=== PATIENT | female | born 1965 | race Caucasian/White ===

== ENCOUNTER 2019-11-29 13:16 | Outpatient (CLI) | payer BC, SELFPAY ==
--- NOTE | ~2019-11-29 | MM_ITS ---
EXAMINATION: MM diagnostic mammo unilat LT HISTORY: Left breast calcifications TECHNIQUE: Additional 3-D tomosynthesis images of the left breast were performed and synthetic 2-D im ages were generated. CAD analysis was submitted and interpreted. COMPARISON: Comparison to multiple prior studies sequentially, with oldest reviewed study dated 12/2014. FINDINGS: Breast composed of scattered areas of fibroglandular density. There are multiple punctate m onomorphic calcifications subareolar location of the left breast. There are no suspicious masses or a rchitectural distortion. IMPRESSION: 1. Punctate monomorphic subareolar left breast calcifications are likely benign. 2. Recommend 6 month follow-up diagnostic left mammogram BI-RADS category 3, probably benign findings. Reviewed, dictated and finalized at location A. PING INSPECTOR IMPRESSION: 1. Punctate monomorphic subareolar left breast calcifications are likely benign . 2. Recommend 6 month follow-up diagnostic left mammogram BI-RADS category 3, probably benign findings.
== END 2019-11-29 13:17 | disposition home or self-care (01) ==
PROVIDERS: PCP Emergency Medicine; Visit Provider Emergency Medicine
DX: R92.8 Other abnormal and inconclusive findings on diagnostic imaging of breast (principal)
CPT/HCPCS: 77065

== ENCOUNTER 2020-07-14 02:37 | Outpatient (CLI) | payer BC, SELFPAY ==
[2020-07-14 18:16] LABS: SARS-CoV-2 RNA PCR Negative
== END 2020-07-14 02:38 | disposition home or self-care (01) ==
LOC: ANHCOVIDDT 02:38
PROVIDERS: Anesthesiology; PCP Emergency Medicine; Visit Provider Obstetrics & Gynecology
DX: Z01.812 Encounter for preprocedural laboratory examination (principal); Z20.828 Contact with and (suspected) exposure to other viral communicable diseases
CPT/HCPCS: 87635; C9803; U0003

== ENCOUNTER 2020-07-16 01:34 | Day surgery (SDC) | payer BC, SELFPAY ==
[2020-07-04 09:09] VITALS: BMI 29.2
--- NOTE | 2020-07-16 05:56 | ECG_ITS ---
Measurements Intervals [place] Rate: 55 P: 20 [place]: 151 QRS: -7 QRSD: 96 T: -7 QT: 412 QTc: 397 Interpretive Statements SINUS BRADYCARDIA LOW QRS VOLTAGE IN PRECORDIAL LEADS BORDERLINE T WAVE ABNORMALITY- INFERIOR LEADS BASELINE ARTIFACT- I, II, AVR BORDERLINE ECG Electronically Signed On 07-16-2020 11:30:29 CDT by Donell Umana D.O.
[2020-07-16] MEDS: ACETAMINOPHEN 500 MG TABLET 1000 MG PO (10:29)
[2020-07-16] MEDS: LACTATED RINGERS 1,000 ML 30 ML IV CONT (10:30)
--- NOTE | 2020-07-16 10:49 | WPDANESEPPF ---
Anes - Initial Pre Proc Eval Procedure: Operation Date: 07/16/20 12:00 Proposed Procedures p Hysteroscopy, Dilation And Curettage - Arthur Reinoso MD Date/Time: 07/16/20 10:49 Surgeon: Arthur Reinoso MD Pre Op Diagnosis: Postmenopausal Bleeding Patient Data Age: 55 Gender: F Height: 5 ft 9 in Weight: 90 kg Allergies Allergy/AdvReac Type Severity Reaction Status Date / Time No Known Allergies Allergy Verified 07/04/20 09:09 Home Medications Medication Instructions Recorded Confirmed Type rosuvastatin 5 mg tablet 5 mg PO DAILY 10/24/19 07/04/20 History Patient hx anesthesia problems: none Family hx anesthesia problems: none REPLACED BY [facility] Past Medical History Medical History (Updated 07/16/20 @ 08:46 by Luis Miguel Mckee MD) Hyperlipidemia Social History Social History Smoking status: Never smoker Substance use: never Substance use type: does not use Living arrangements: with family Gender identity (if verbalized by the patient): Female Spiritual care concerns: No Anes - Eval Final PreProcedure Day of Procedure 07/16/20 10:49 Patient weight: overweight Heart: regular rate and rhythm Lungs: clear to auscultation Airway: Mallampati scale class II Neurological: alert and oriented Last oral intake: 6 hours (had coffee with creamer) ASA classification: II Emergent: no Anesthetic plan: proceed Anesthesia type and monitoring: general GIVS and standard monitoring Informed Consent: The patient's anesthetic plan and its attendant risks and benefits were discussed with the patient/family/POA. Questions were solicited and answers provided to the satisfaction of the patient/family/POA.
--- NOTE | 2020-07-16 11:42 | PM.IMHP ---
H&P: HPI History of Present Illness Date/Time: 07/16/20 11:42 Chief complaint: Postmenopausal Bleeding Narrative: Kelsie Kumar is a 55 year old female Presents with history of intermittent bleeding over the past few months. Ultrasound was ordered which showed no abnormalities of the endometrial cavity. We discussed multiple options and she had the option to defer any evaluation pending further bleeding episodes and decided to proceed with procedure today. Will be proceeding with hysteroscope uterine curettings. Review of Systems Review of Systems: All systems reviewed & are unremarkable except as noted in HPI and below PMFSH Past Medical History Medical History Hyperlipidemia Social History Social History Smoking status: Never smoker Substance use: never Substance use type: does not use Living arrangements: with family Gender identity (if verbalized by the patient): Female Spiritual care concerns: No Meds Home Medications and Allergies Home Medications Medication Instructions Recorded Confirmed Type rosuvastatin 5 mg tablet 5 mg PO DAILY 10/24/19 07/04/20 History Allergies Allergy/AdvReac Type Severity Reaction Status Date / Time No Known Allergies Allergy Verified 07/04/20 09:09 Exam Const: General: cooperative Resp: Effort & Inspection: normal respiratory effort Cardio: Rate: regular rate Rhythm: regular rhythm GI: Inspection: normal to inspection : Speculum Exam - Cervix: normal appearance of the cervix Bimanual exam- vagina & uterus: normal bimanual exam Bimanual Exam- Adnexa, other: normal adnexae Assessment and Plan Assessment and plan (1) Postmenopausal bleeding: Code(s): N95.0 - Postmenopausal bleeding Status: Acute Additional Plan proceed with hysteroscopy in uterine curettings.
--- NOTE | 2020-07-16 11:44 | WPDHPUPDATE1 ---
History and Physical Update Update Date/Time: 07/16/20 11:44 History and Physical has been reviewed, including an updated exam of the patient. There are NO changes in the patient's condition. Risks, benefits, and alternatives have been discussed and questions answered. Patient agrees to proceed with procedure.
[2020-07-16] MEDS: KETOROLAC 30 MG/ML VIAL (*BKC) IV PUSH (12:27)
[2020-07-16 12:32] VITALS: BP 101/63; PULSE 65; RESP 14; O2SAT 96
[2020-07-16 12:47] VITALS: BP 126/74; PULSE 63; RESP 16; TEMP 36.4; O2SAT 100
[2020-07-16 13:00] VITALS: BP 117/65; PULSE 57; RESP 16
--- NOTE | 2020-07-16 13:19 | PM.OP ---
Procedure Note - Brief Procedure Note - Brief Date of procedure: 07/16/20 Pre-op diagnosis: Postmenopausal Bleeding Post-op diagnosis: same Procedure performed: 1. Hysteroscopy 2. Uterine curettings Description of procedure: Patient prepped and draped in usual manner for this procedure. Single-tooth tenaculum attached to anterior lip of the cervix. Stenotic cervix was noted and with small probe was opened. Hysteroscope was then placed in the cavity with atrophy noted throughout. There were no other abnormalities noted. Curettings were obtained with scant amount of tissue retrieved. At this point seizure was considered terminated with immediate postop condition of patient excellent. Anesthesia: MAC Surgeon: Arthur Reinoso MD Estimated blood loss (mL): 5 Drains: No Packing: No Pathology: yes Complications: No immediate complications Condition: stable Disposition: PACU Findings: Atrophic endometrial cavity with no abnormalities noted.
[2020-07-16 13:20] VITALS: BP 101/64; PULSE 56; RESP 16
== END 2020-07-16 13:30 | disposition home or self-care (01) ==
PROVIDERS: PCP Emergency Medicine; Visit Provider Obstetrics & Gynecology
PROC: 0U5B8ZZ Destruction of Endometrium, Via Natural or Artificial Opening Endoscopic (ICD-10-PCS; CPT 58563; principal; 2020-07-16 12:00)
DX: N95.0 Postmenopausal bleeding (principal); N88.2 Stricture and stenosis of cervix uteri; E78.5 Hyperlipidemia, unspecified
CPT/HCPCS: 58558; 88305; 93005; A9270; J1885; J2250; J2405; J2704; J3010; J7030; J7120

== ENCOUNTER 2022-02-17 14:36 | Outpatient (CLI) | payer BC, SELFPAY ==
--- NOTE | ~2022-02-17 | XR_ITS ---
EXAMINATION: XR chest 2V Exam Date/Time: 02/17/2022 14:45 CDT CLINICAL HISTORY: CHRONIC COUGH X 6MO Comparison: None available. RESULT: Lines, tubes, and devices: None. Lungs and pleura: Clear. Cardiomediastinal silhouette: Unremarkable cardiomediastinal silhouette. Other: No acute osseous or upper abdominal finding. IMPRESSION: No acute cardiopulmonary process Reviewed, dictated and finalized at location K.
== END 2022-02-17 14:37 | disposition home or self-care (01) ==
LOC: ANHIMG 14:41
PROVIDERS: PCP Internal Medicine; Visit Provider Internal Medicine
DX: R05.3 Chronic cough (principal)
CPT/HCPCS: 71046

== ENCOUNTER 2022-06-25 07:56 | Outpatient (CLI) | payer BC, SELFPAY ==
--- NOTE | ~2022-06-25 | XR_ITS ---
XR sinus min 3V DATE: 06/25/2022 08:22 INDICATION: Cough. Frontal and maxillary sinus congestion, pressure TECHNIQUE: Leah Whitaker, lateral and submental vertical views COMPARISON: None FINDINGS: The right frontal sinus is not developed. The left frontal sinus and ethmoid air cells, lef t maxillary sinus and sphenoid sinuses appear normally developed and aerated. Prominent soft tissue thickening is noted in the lower half of the right maxillary sinus with superio r convexity, suggesting possible polyps prominent mucus retention cysts. The mastoid air cells are normally developed and aerated. IMPRESSION: Right maxillary sinus disease Reviewed, dictated and finalized at location D.
--- NOTE | ~2022-06-25 | XR_ITS ---
XR barium swallow DATE: 06/25/2022 09:51 INDICATION: Gastroesophageal reflux. Tickle in back of throat, leads to vomiting. TECHNIQUE: Fluoroscopy, rapid sequence spot radiographs and overhead radiographs during oral ingestio n of barium 11.713 DAP 0.7 minutes fluoroscopy time 99 spot images, 6 overhead images COMPARISON: None FINDINGS: There is normal deglutition and esophageal peristalsis. No stricture, mucosal fold thicken ing or erosion, intraluminal mass lesion, stricture, diverticulum or other significant abnormality is detected. IMPRESSION: Negative Reviewed, dictated and finalized at Location A. Reviewed, dictated and finalized at location B. IMPRESSION: Negative
== END 2022-06-25 07:57 | disposition home or self-care (01) ==
LOC: CHSIMG 07:57
PROVIDERS: PCP Internal Medicine; Visit Provider Internal Medicine
DX: K21.9 Gastro-esophageal reflux disease without esophagitis (principal); R05.9 Cough, unspecified
CPT/HCPCS: 70220; 74220

== ENCOUNTER 2022-08-24 16:14 | Outpatient (CLI) | payer BC, SELFPAY ==
--- NOTE | ~2022-08-24 | XR_ITS ---
XR lumbar spine 2-3V DATE: 08/24/2022 17:02 INDICATION: Right lumbar pain and sciatica TECHNIQUE: AP, lateral, coned lateral lumbosacral views COMPARISON: None FINDINGS: There is osteopenia. Normal alignment of the lumbar spine. No fracture or bone destruction or spondylolisthesis. Lumbar pe dicles are intact. There is mild to moderate degenerative disease throughout the lumbar and lumbosacral spine. The sacroiliac joints are normal. IMPRESSION: Mild to moderate degenerative disease throughout the lumbar spine Osteopenia Reviewed, dictated and finalized at location A. ERT GROWER
== END 2022-08-24 16:15 | disposition home or self-care (01) ==
LOC: CHSIMG 16:16
PROVIDERS: PCP Internal Medicine; Visit Provider Internal Medicine
DX: M54.17 Radiculopathy, lumbosacral region (principal)
CPT/HCPCS: 72100

== ENCOUNTER 2023-02-25 14:07 | Outpatient (CLI) | payer BC, SELFPAY ==
--- NOTE | ~2023-02-25 | CT_ITS ---
EXAMINATION: CT sinus wo con DATE: 02/25/2023 14:38 INDICATION: Sinusitis TECHNIQUE: Computed tomography (CT) of the paranasal sinuses was performed without intravenous contra st. The dose-length product was 286.08 mGy-cm. Automated exposure control and iterative reconstructio n technique were employed. COMPARISON: No prior studies for comparison. FINDINGS: There is moderate mucosal thickening of the right maxillary sinus. Rightward nasal septal d eviation. Ostiomeatal units are patent. No air-fluid levels. No mucoperiosteal reaction. Mastoids are pneumatized. IMPRESSION: 1. Moderate right maxillary sinusitis. Reviewed, dictated and finalized at location B.
== END 2023-02-25 14:08 | disposition home or self-care (01) ==
PROVIDERS: PCP Internal Medicine; Visit Provider Otolaryngology
DX: J32.0 Chronic maxillary sinusitis (principal)
CPT/HCPCS: 70486

== ENCOUNTER 2023-09-11 06:31 | Emergency (ER) | payer BC, SELFPAY ==
--- NOTE | ~2023-09-11 | CT_ITS ---
EXAMINATION: CT chest abdomen pelvis w con DATE: 09/11/2023 10:35 INDICATION: Hematemesis and hemoptysis TECHNIQUE: Transaxial computed tomographic images of the chest, abdomen, and pelvis were obtained aft er the administration of 100 cc of Omnipaque 350 intravenous contrast. The dose-length product (DLP) was 2671.29 mGy-cm. Automated exposure control and iterative reconstruction technique were employed. COMPARISON: None FINDINGS: CHEST CT: There is mild atelectasis of the lung bases. No pleural effusion or pneumothorax. No pathologically e nlarged thoracic lymph nodes are identified. The heart size is normal. There is mild thoracic spondyl osis. ABDOMEN/PELVIS CT: There is a small sliding hiatal hernia. The liver, spleen, pancreas, gallbladder, and adrenal glands are normal. The kidneys are unremarkable. No pathologically enlarged abdominal or pelvic lymph nodes are identified. No free intraperitoneal gas or evidence of bowel obstruction. There is moderate lumba r spondylosis. IMPRESSION: 1. No CT correlate for the patient's symptoms. Reviewed, dictated and finalized at location F. IVING SPECIALIST
--- NOTE | ~2023-09-11 | XR_ITS ---
EXAMINATION: XR chest 2V DATE: 09/11/2023 08:16 INDICATION: Hemoptysis TECHNIQUE: PA and lateral views of the chest are obtained. COMPARISON: 02/17/2022 FINDINGS: There are minimal airspace opacities of the right lung base. No pleural effusion or pneumot horax. The cardiomediastinal silhouette is normal. There is moderate thoracic spondylosis. IMPRESSION: 1. Right basilar airspace opacity, consistent with atelectasis versus pneumonia. Reviewed, dictated and finalized at location F. UNT CONSULTANT IMPRESSION: 1. Right basilar airspace opacity, consistent with atelectasis versus pneumonia .
[2023-09-11 06:32] VITALS: BP 133/83; PULSE 73; RESP 18; TEMP 36.6; O2SAT 98
[2023-09-11 07:58] VITALS: BP 131/68; PULSE 67; RESP 18; O2SAT 98; O2SAT 99
--- NOTE | 2023-09-11 09:04 | ED.SOB ---
HPI - SOB/Dyspnea General Chief Complaint: Shortness of Breath/Dyspnea Stated Complaint: coughing up blood Time Seen by Provider: 09/11/23 08:51 Source: patient Mode of arrival: ambulatory Limitations: no limitations History of Present Illness HPI Narrative: Mary is a 58-year-old female patient presenting to the ER today for coughing up blood. She reports that she has been having some chronic vomiting for over a 1.5 years. States yet she vomits about 2-3 times per week. Noted over the last few days that she has been vomiting up some blood (coffee ground emesis). Also reporting some shortness of breath with this. Does have a history of pneumonia in the past. Has seen her PCP in the past for the vomiting and she had a barium swallow and blood testing completed and states that he ruled out anything going on GI alston and felt it may be more related to ENT issue. Denies any fever or chills. SpO2 is 98% on room air and she is able to speak in full sentences. Related Data Home Medications Medication Instructions Recorded Confirmed rosuvastatin 5 mg tablet (Crestor) 5 mg PO DAILY 10/24/19 12/16/22 coenzyme [id number] E 100 mg-100 1 cap PO 12/16/22 12/16/22 unit capsule fluticasone propionate 50 1 spray intranasal 12/16/22 12/16/22 mcg/actuation nasal spray,suspension montelukast 10 mg tablet 10 mg PO 12/16/22 12/16/22 multivitamin-ferrous 1 tablet PO DAILY 12/16/22 12/16/22 fumarate-folic acid 18 mg-400 mcg tablet (Centrum) Allergies Allergy/AdvReac Type Severity Reaction Status Date / Time No Known Allergies Allergy Verified 09/11/23 08:01 Review of Systems Review of Systems: Pertinent positives per HPI. Patient denies any fever, chills, rash, headache, visual changes, dizziness, runny nose, sore throat, chest pain, palpitations, diarrhea, constipation, abdominal pain, or any urinary issues. PMF Past Medical History Medical History Hyperlipidemia Family History Family History Father Hypertension Thyroid disorder Mother Diabetes mellitus Sibling Asthma Grandparent Alcohol abuse Hypertension Thyroid disorder Social History Social History Smoking status: Never smoker Alcohol intake: current Drinks per week: 1 Substance use: never Substance use type: does not use Lack of Transportation: No Lack of Food: Never True Current Housing: I Have Housing Concerned About Future Housing: No Difficulty Paying Gas/Electric Bills: No Difficulty Paying for Meds: No Currently Unemployed: No Education: Associate Degree Difficulty w/ Childcare or Family Care: No Living arrangements: with family Gender identity (if verbalized by the patient): Female Spiritual care concerns: No Comments At the time of my signature, I reviewed and agree with the nursing past medical, surgical, social, and family history. There is no relevant family history pertinent to the patient complaint. Exam Narrative: General: Well-developed, well nourished, in no apparent distress Head: Normocephalic, atraumatic Eyes: Pupils equally round and reactive to light bilaterally, EOM intact, sclera and conjunctive clear, no discharge, lids normal Ears: TMs intact and clear, ear canals clear, no drainage, grossly hearing normal. Nose: Nares patent, no discharge, no inflammation, no sinus tenderness. Mouth: Oropharynx without lesions or masses, good dentition, MMM. Neck: Supple, trachea midline, no enlargement of anterior or posterior cervical nodes, no thyroid masses or goiter palpable. Cardio: Regular rate and rhythm, s1 and s2 normal, no murmur appreciated. Resp: Faint crackles in the right lower lung pulido, no rhonchi,wheezing, or rubs Abdomen: Soft, pliable, bowel sounds present in all quadrants, non-tender
[2023-09-11 09:35] LABS: Basophils Absolute Auto 0.1 K/mm3 (0.0-0.1); Basophils Percent Auto 0.9 % (0.2-1.2); Eosinophils Absolute Auto 0.2 K/mm3 (0-0.3); Hemoglobin 11.7 g/dL (12.0-15.0); Immature Granulocyte Absolute 0.02 K/mm3 (0.00-0.031); Immature Granulocyte Percent A 0.4 % (0-0.5); Lymphocytes Absolute Auto 1.82 K/mm3 (0.9-3.2); Lymphocytes Percent Auto 32.8 % (18.3-44.2); Mean Corpuscular HGB Conc 32.5 g/dl (32-36); Mean Corpuscular Hemoglobin 29.3 pg (26-34); Mean Corpuscular Volume 90.2 fl (80-100); Mean Platelet Volume 11.2 fl (7.4-10.4); Monocytes Absolute Auto 0.3 K/mm3 (0.1-0.6); Monocytes Percent Auto 5.4 % (2.6-8.5); Neutrophils Absolute Auto 3.1 K/mm3 (1.3-6.7); Neutrophils Percent Auto 56.5 % (45.5-73.1); Platelet Count Result 186 k/mm3 (150-375); Red Blood Count 3.99 M/mm3 (4.2-5.4); Red Cell Distribution Width 12.7 % (11.5-14.5); White Blood Count 5.6 K/mm3 (4.5-10.0)
[2023-09-11 09:45] LABS: Prothrombin Time 14.1 Seconds (11.1-14.7)
[2023-09-11 09:46] LABS: Partial Thromboplastin Time 30.4 SECONDS (22.3-36.8)
[2023-09-11 09:50] LABS: Alanine Aminotransferase 16 U/L (6-35); Alkaline Phosphatase 50 U/L (38-126); Anion Gap 7 mmol/L (8-16); Aspartate Amino Transferase 20 U/L (14-36); Bilirubin,Total 0.5 mg/dL (0.2-1.3); Blood Urea Nitrogen 16 mg/dL (7-17); Carbon Dioxide 23 mmol/L (22-30); Chloride 108 mmol/L (98-107); Estimated CRCL calculation 93 ml/min; Estimated Glomerular Filt Rate > 60; Glucose 86 mg/dL (65-110); Potassium 3.9 mmol/L (3.4-5.0); Sodium 138 mmol/L (137-145)
[2023-09-11 10:44] VITALS: BP 137/84; PULSE 66; RESP 18; O2SAT 100
[2023-09-11 11:55] VITALS: BP 132/90; PULSE 85; RESP 20; O2SAT 98
== END 2023-09-11 11:57 | disposition home or self-care (01) ==
PROVIDERS: Emergency Provider Nurse Practitioner Family; PCP Internal Medicine
DX: K29.70 Gastritis, unspecified, without bleeding (principal); K44.9 Diaphragmatic hernia without obstruction or gangrene; E78.5 Hyperlipidemia, unspecified
CPT/HCPCS: 36415; 71046; 71260; 74177; 80053; 85025; 85610; 85730; 99284; Q9967

== ENCOUNTER 2023-11-07 10:06 | Outpatient (CLI) | payer BC, SELFPAY ==
--- NOTE | 2023-11-07 10:15 | ECG_ITS ---
Measurements Intervals [place] Rate: 67 P: 35 [place]: 163 QRS: -14 QRSD: 87 T: -9 QT: 385 QTc: 407 Interpretive Statements SINUS RHYTHM LOW QRS VOLTAGE IN PRECORDIAL LEADS [QRS DEFLECTION < 1.0 mV IN CHEST LEADS] BORDERLINE ECG COMPARED TO ECG 07/16/2020 11:27:49 NO SIGNIFICANT CHANGE Electronically Signed On 11-07-2023 16:52:34 WATCH TRAIN INSPECTOR by Mango Tyson M.D.
== END 2023-11-07 10:07 | disposition home or self-care (01) ==
LOC: ANHSURGERY 10:09
PROVIDERS: PCP Internal Medicine; Visit Provider Otolaryngology
DX: E78.00 Pure hypercholesterolemia, unspecified (principal); Z01.818 Encounter for other preprocedural examination
CPT/HCPCS: 93005

== ENCOUNTER 2023-11-09 00:50 | Day surgery (SDC) | payer BC, SELFPAY ==
[2023-10-19 14:41] VITALS: BMI 30.9
--- NOTE | 2023-11-07 12:14 | SUR.PREOP ---
Patient called regarding upcoming procedure. Reviewed preop instructions, appointment times, and procedure prep.
--- NOTE | 2023-11-08 16:31 | PM.HPGS ---
History of Present Illness History of Present Illness Consent: Risks, benefits, and alternatives have been discussed and questions answered. Patient agrees to proceed with procedure. Chief complaint: vomiting,hematemesis,hemotysis,neoplasm screening Narrative: Kelsie Kumar is a 58 year old female withchronic cough and chronic sinusitis is referred for evaluation of vomiting times one year. ? Patient reports vomiting occurs at least 2 times per week.? Vomiting is preceded by chronic coughing. ? States vomiting can occur at random times including during the night.? states when she does vomit usually is mucus like and brown and yellow in color. States she did have an episode blood with coughing and possible hematemesis, this prompted follow-up at [facility] on September 11. Her hemoglobin and hematocrit were very slightly decreased at 11.7 and 36.? She has never had a colonoscopy. Review of Systems Review of Systems: All systems reviewed & are unremarkable except as noted in HPI and below PMFSH Past Medical History Medical History Anxiety Cough with hemoptysis Encounter for screening colonoscopy Encounter for screening examination for sexually transmitted disease Hematemesis Hyperlipidemia Screening mammogram, encounter for Vomiting Surgical History Surgical History H/O colonoscopy (10/19/23) History of hysteroscopy suction D&C Missed AB History of hysteroscopy (07/16/20) Hscope D&C ; PMB ; Benign Family History Family History Father Hypertension Thyroid disorder Mother Diabetes mellitus Sibling Asthma Grandparent Alcohol abuse Hypertension Thyroid disorder Other Breast cancer maternal aunt Social History Social History Smoking status: Never smoker Second hand tobacco smoke exposure: No Alcohol intake: current Drinks per week: 2 Substance use: never Substance use type: does not use Do You Feel Safe in your Home?: Yes Lack of Transportation: No Lack of Food: Never True Current Housing: I Have Housing Concerned About Future Housing: No Difficulty Paying Gas/Electric Bills: No Difficulty Paying for Meds: No Currently Unemployed: No Education: Associate Degree Difficulty w/ Childcare or Family Care: No Living arrangements: alone Additional living arrangements comments: / spouse will not leave house Occupation/Education: occupation 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 Gender identity (if verbalized by the patient): Female Sexual Orientation (if Verbalized by the Patient): Straight or Heterosexual Spiritual care concerns: No Meds Home Medications and Allergies Home Medications Medication Instructions Recorded Confirmed Type rosuvastatin 5 mg tablet (Crestor) 5 mg PO DAILY 10/24/19 11/09/23 History coenzyme [id number] E 100 mg-100 1 cap PO DAILY 12/16/22 11/03/23 History unit capsule fluticasone propionate 50 1 spray intranasal TID 12/16/22 11/03/23 History mcg/actuation nasal spray,suspension multivitamin-ferrous 1 tablet PO DAILY 12/16/22 11/03/23 History fumarate-folic acid 18 mg-400 mcg tablet (Centrum) bupropion HCl 150 mg 24 hr tablet, 300 mg PO QAM 10/13/23 11/09/23 History extended release Allergies Allergy/AdvReac Type Severity Reaction Status Date / Time No Known Allergies Allergy Verified 11/09/23 10:53 Exam Const: General: alert Orientation/consciousness: patient oriented x3 Resp: Auscultation: clear to auscultation bilaterally Cardio: Rhythm: regular rhythm GI: GI Palp: Yes Soft to palpation and No Tenderness to palpation present (GI) Neuro: General: patient oriented x3 Assessment and Plan Assessment and plan (1) Vomiting:
[2023-11-09 10:59] VITALS: BP 107/62; PULSE 62; RESP 18; TEMP 36.6; O2SAT 98
[2023-11-09] MEDS: LACTATED RINGERS 1,000 ML 150 ML IV CONT (11:06)
--- NOTE | 2023-11-09 11:34 | WPDANESEPPF ---
Anes - Initial Pre Proc Eval Procedure: Operation Date: 11/09/23 12:30 Proposed Procedures p Esophagogastroduodenoscopy & Screening Colonoscopy - Troy Becerra MD Date/Time: 11/09/23 11:34 Surgeon: Troy Becerra MD Pre Op Diagnosis: vomiting,hematemesis,hemotysis,neoplasm screening Patient Data Age: 58 Gender: F Height: 1.75 m Weight: 92.6 kg Last Vital Signs Temp 98 F 11/09/23 10:59 Pulse 62 11/09/23 10:59 Resp 18 11/09/23 10:59 BP 107/62 11/09/23 10:59 Pulse Ox 98 11/09/23 10:59 O2 Del Method Room Air 11/09/23 10:59 Allergies Allergy/AdvReac Type Severity Reaction Status Date / Time No Known Allergies Allergy Verified 11/09/23 10:53 Home Medications Medication Instructions Recorded Confirmed Type rosuvastatin 5 mg tablet (Crestor) 5 mg PO DAILY 10/24/19 11/09/23 History coenzyme [id number]-[id number] E 100 mg-100 1 cap PO DAILY 12/16/22 11/03/23 History unit capsule fluticasone propionate 50 1 spray intranasal TID 12/16/22 11/03/23 History mcg/actuation nasal spray,suspension multivitamin-ferrous 1 tablet PO DAILY 12/16/22 11/03/23 History fumarate-folic acid 18 mg-400 mcg tablet (Centrum) bupropion HCl 150 mg 24 hr tablet, 300 mg PO QAM 10/13/23 11/09/23 History extended release Patient hx anesthesia problems: none Family hx anesthesia problems: none Results Review: All pre-operative results and documents have been reviewed as part of the pre-operative evaluation. [facility] Past Medical History Medical History (Updated 10/26/23 @ 15:18 by Arthur Reinoso MD) Anxiety Cough with hemoptysis Encounter for screening colonoscopy Encounter for screening examination for sexually transmitted disease Hematemesis Hyperlipidemia Screening mammogram, encounter for Vomiting Surgical History Surgical History H/O colonoscopy (10/19/23) History of hysteroscopy suction D&C Missed AB History of hysteroscopy (07/16/20) Hscope D&C ; PMB ; Benign Family History Family History Father Hypertension Thyroid disorder Mother Diabetes mellitus Sibling Asthma Grandparent Alcohol abuse Hypertension Thyroid disorder Other Breast cancer maternal aunt Social History Social History (Updated 10/26/23 @ 14:51 by CARMEN Fu) Smoking status: Never smoker Second hand tobacco smoke exposure: No Alcohol intake: current Drinks per week: 2 Substance use: never Substance use type: does not use Do You Feel Safe in your Home?: Yes Lack of Transportation: No Lack of Food: Never True Current Housing: I Have Housing Concerned About Future Housing: No Difficulty Paying Gas/Electric Bills: No Difficulty Paying for Meds: No Currently Unemployed: No Education: Associate Degree Difficulty w/ Childcare or Family Care: No Living arrangements: alone Additional living arrangements comments: / spouse will not leave house Occupation/Education: occupation 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 Gender identity (if verbalized by the patient): Female Sexual Orientation (if Verbalized by the Patient): Straight or Heterosexual Spiritual care concerns: No Anes - Eval Final PreProcedure Day of Procedure 11/09/23 11:35 Patient weight: normal Heart: regular rate and rhythm Lungs: clear to auscultation Airway: Mallampati scale class II Neurological: alert and oriented Last oral intake: >/= 8 hours ASA classification: II Emergent: no Anesthetic plan: proceed Anesthesia type and monitoring: general GIVS and standard monitoring Results Review: All pre-operative results and documents have been reviewed as part of the pre-operative evaluation. Informed Consent: The patient's anesthetic plan and its attendant risks and benefits were discussed with the patient/family
--- NOTE | 2023-11-09 13:09 | SUR.OPER ---
EGD: [id number] COLON: Start 1300
[2023-11-09 13:24] VITALS: BP 106/67; PULSE 83; RESP 18; O2SAT 100
[2023-11-09 13:34] VITALS: BP 103/60; PULSE 79; RESP 18; O2SAT 100
[2023-11-09 13:44] VITALS: BP 118/73; PULSE 67; RESP 18; O2SAT 100
== END 2023-11-09 13:55 | disposition home or self-care (01) ==
PROVIDERS: PCP Internal Medicine; Visit Provider Internal Medicine Gastroenterology
PROC: 0DJ08ZZ Inspection of Upper Intestinal Tract, Via Natural or Artificial Opening Endoscopic (ICD-10-PCS; CPT 43235; principal; 2023-11-09 12:30)
DX: Z12.11 Encounter for screening for malignant neoplasm of colon (principal); K21.00 Gastro-esophageal reflux disease with esophagitis, without bleeding; K22.2 Esophageal obstruction; K44.9 Diaphragmatic hernia without obstruction or gangrene; E78.5 Hyperlipidemia, unspecified; F41.9 Anxiety disorder, unspecified
CPT/HCPCS: 45378; 43239; 87081; 88305; J2001; J2704; J7120

== ENCOUNTER 2023-11-15 00:49 | Day surgery (SDC) | payer BC, SELFPAY ==
[2023-11-03 11:42] VITALS: BMI 30.9
--- NOTE | 2023-11-03 11:51 | PC.NURSE ---
Report to the Outpatient Waiting Room, entrance under the green pavilion located off [facility], at time 08:15AM on date 11-15-23. Planned Procedure Time: 10:15AM. Time changes happen often and if your time is changed the preop area will call you the afternoon before. - You and your visitor will be asked to self-screen and do not enter if you have any COVID symptoms. - A mask is optional within the hospital at this time. Patients may have clear liquids (water, carbonated beverages, clear teas, apple juice) until 3 hours prior to surgery (07:15AM) with a maximum of 20 ounces. - No food from midnight until time of surgery Take the following medications with a SIP of water the morning of surgery: BUPROPION DO NOT STOP ANY OF YOUR OTHER PRESCRIPTION MEDICATIONS PRIOR TO SURGERY ?EXCEPT THE FOLLOWING Medications to discontinue per physician VITAMINS AND SUPPLEMENTS Date to take last dose 11-11-23 Please no make-up, nail icelandic, hairspray, perfume, deodorant, or body powder the day of surgery. No jewelry (including any body piercings) or valuables the day of surgery, leave them at home. Please take a shower or bath the night before, or the morning of, surgery with an antibacterial soap. Wear comfortable, loose fitting clothing. - Jewelry must be removed prior to entering the operating room. Rings and piercings that are not removed may be cut off. - The hospital will not accept responsibility for valuables. - Please leave all valuables, including medications, at home the day of surgery. If you are going home after surgery, a licensed pile driver must drive you home. - NO public transportation without another adult if you receive anesthesia. - We recommend that an adult stay with you for 24 hours following discharge. - We also recommend that you do not drive, make important decision, drink alcoholic beverages, or take any drugs that were not prescribed by your health care provider for at least 24 hours after your discharge time. Follow any additional instructions given to you from your surgeon. If you or anyone in your household have experienced Covid symptoms in the past week, please notify your surgeon or the nurse liaison at the phone number below for possible testing. Telephone instructions given to PATIENT and asked if any additional questions and then verbalized understanding. Patient advised to call surgeon office or pre surgery nurse liaison [phone] if any additional questions.
--- NOTE | 2023-11-13 13:17 | PM.IMHP ---
H&P: HPI History of Present Illness Date/Time: 11/13/23 13:17 Chief Complaint: nasal congestion nasal obstruction septal deviation turbinate hypertrophy chronic sinusitis Narrative: planned procedure Review of Systems Review of Systems: All systems reviewed & are unremarkable except as noted in HPI and below PMFSH Past Medical History Medical History Anxiety Cough with hemoptysis Encounter for screening colonoscopy Encounter for screening examination for sexually transmitted disease Hematemesis Hyperlipidemia Screening mammogram, encounter for Vomiting Surgical History Surgical History H/O colonoscopy (10/19/23) History of hysteroscopy suction D&C Missed AB History of hysteroscopy (07/16/20) Hscope D&C ; PMB ; Benign Family History Family History Father Hypertension Thyroid disorder Mother Diabetes mellitus Sibling Asthma Grandparent Alcohol abuse Hypertension Thyroid disorder Other Breast cancer maternal aunt Social History Social History Smoking status: Never smoker Second hand tobacco smoke exposure: No Alcohol intake: current Drinks per week: 2 Substance use: never Substance use type: does not use Do You Feel Safe in your Home?: Yes Lack of Transportation: No Lack of Food: Never True Current Housing: I Have Housing Concerned About Future Housing: No Difficulty Paying Gas/Electric Bills: No Difficulty Paying for Meds: No Currently Unemployed: No Education: Associate Degree Difficulty w/ Childcare or Family Care: No Living arrangements: alone Additional living arrangements comments: / spouse will not leave house Occupation/Education: occupation 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 Gender identity (if verbalized by the patient): Female Sexual Orientation (if Verbalized by the Patient): Straight or Heterosexual Spiritual care concerns: No Meds Home Medications and Allergies Home Medications Medication Instructions Recorded Confirmed Type rosuvastatin 5 mg tablet (Crestor) 5 mg PO DAILY 10/24/19 11/09/23 History coenzyme I77-kvhxfvn E 100 mg-100 1 cap PO DAILY 12/16/22 11/03/23 History unit capsule fluticasone propionate 50 1 spray intranasal TID 12/16/22 11/03/23 History mcg/actuation nasal spray,suspension multivitamin-ferrous 1 tablet PO DAILY 12/16/22 11/03/23 History fumarate-folic acid 18 mg-400 mcg tablet (Centrum) bupropion HCl 150 mg 24 hr tablet, 300 mg PO QAM 10/13/23 11/09/23 History extended release pantoprazole 40 mg tablet,delayed 40 mg PO QAM #30 tabs 11/09/23 Rx release Allergies Allergy/AdvReac Type Severity Reaction Status Date / Time No Known Allergies Allergy Verified 11/09/23 10:53 Exam Narrative: chronic appearing sinuses septal deviation turbinate hypertrophy Assessment and Plan Assessment and plan (1) PND (post-nasal drip): Code(s): R09.82 - Postnasal drip Status: Acute Assessment and Plan: OR plan will be septoplasty inferior turbinate reduction with outfracture for the nasal obstruction issues as well access to the sinuses.? Image guided endoscopic bilateral maxillary antrostomies.? Risks were discussed including bleeding infection damage to surrounding structures need for time off work time off school inherent risk of narcotic use failure to resolve symptoms septal perforation need for continued use of medication.? Damage to any structure of the clavicles by myself damage to any structure during the induction and maintenance of anesthesia including vocal cord paralysis.? CSF leak brain brain damage change in vision total blindness.? Patient voiced understanding and agreed.? (2)
--- NOTE | 2023-11-14 14:47 | WPDANESEPPF ---
Anes - Initial Pre Proc Eval Procedure: Operation Date: 11/15/23 11:45 Proposed Procedures p Endoscopic Assisted Septoplasty, - Alphonse Velasquez MD s Image Guided Bilateral Endoscopic Maxillary Antrostomies, Bilateral Inferior Turbinate Reductions With Outfracture - Alphonse Velasquez MD Date/Time: 11/14/23 14:47 Surgeon: Alphonse Velasquez MD Pre Op Diagnosis: chronic sinusitis and septal deviation Patient Data Age: 58 Gender: F Height: 1.75 m Weight: 95 kg Allergies Allergy/AdvReac Type Severity Reaction Status Date / Time No Known Allergies Allergy Verified 11/09/23 10:53 Home Medications Medication Instructions Recorded Confirmed Type rosuvastatin 5 mg tablet (Crestor) 5 mg PO DAILY 10/24/19 11/15/23 History coenzyme Y66-tulmnff E 100 mg-100 1 cap PO DAILY 12/16/22 11/15/23 History unit capsule fluticasone propionate 50 1 spray intranasal TID 12/16/22 11/15/23 History mcg/actuation nasal spray,suspension multivitamin-ferrous 1 tablet PO DAILY 12/16/22 11/15/23 History fumarate-folic acid 18 mg-400 mcg tablet (Centrum) bupropion HCl 150 mg 24 hr tablet, 300 mg PO QAM 10/13/23 11/15/23 History extended release pantoprazole 40 mg tablet,delayed 40 mg PO QAM #30 tabs 11/09/23 11/15/23 Rx release Patient hx anesthesia problems: none Family hx anesthesia problems: none Results Review: All pre-operative results and documents have been reviewed as part of the pre-operative evaluation. COUNTS INCLUDE 234 BEDS AT THE [facility] Past Medical History Medical History Anxiety Cough with hemoptysis Encounter for screening colonoscopy Encounter for screening examination for sexually transmitted disease Hematemesis Hyperlipidemia Screening mammogram, encounter for Vomiting Surgical History Surgical History H/O colonoscopy (10/19/23) History of hysteroscopy suction D&C Missed AB History of hysteroscopy (07/16/20) Hscope D&C ; PMB ; Benign Family History Family History Father Hypertension Thyroid disorder Mother Diabetes mellitus Sibling Asthma Grandparent Alcohol abuse Hypertension Thyroid disorder Other Breast cancer maternal aunt Social History Social History Smoking status: Never smoker Second hand tobacco smoke exposure: No Alcohol intake: current Drinks per week: 2 Substance use: never Substance use type: does not use Do You Feel Safe in your Home?: Yes Lack of Transportation: No Lack of Food: Never True Current Housing: I Have Housing Concerned About Future Housing: No Difficulty Paying Gas/Electric Bills: No Difficulty Paying for Meds: No Currently Unemployed: No Education: Associate Degree Difficulty w/ Childcare or Family Care: No Living arrangements: alone Additional living arrangements comments: / spouse will not leave house Occupation/Education: occupation 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 Gender identity (if verbalized by the patient): Female Sexual Orientation (if Verbalized by the Patient): Straight or Heterosexual Spiritual care concerns: No Anes - Eval Final PreProcedure Day of Procedure 11/14/23 14:47 Patient weight: obese Heart: regular rate and rhythm Lungs: clear to auscultation Airway: Mallampati scale class III Neurological: alert and oriented Last oral intake: >/= 8 hours ASA classification: II Emergent: no Anesthetic plan: proceed Anesthesia type and monitoring: general ETT and standard monitoring Results Review: All pre-operative results and documents have been reviewed as part of the pre-operative evaluation. Informed Consent: The patient's anesthetic plan and its attendant risks and benefits were discussed with the patient/family/POA. Questions were solicite
[2023-11-15] VITALS (8 sets, daily range): BP systolic 114–135; BP diastolic 55–79; PULSE 68–96; RESP 12–20; TEMP 36.4; O2SAT 95–100
--- NOTE | 2023-11-15 07:19 | WPDHPUPDATE1 ---
History and Physical Update Update Date/Time: 11/15/23 07:19 History and Physical has been reviewed, including an updated exam of the patient. There are NO changes in the patient's condition. Risks, benefits, and alternatives have been discussed and questions answered. Patient agrees to proceed with procedure.
[2023-11-15] MEDS: ACETAMINOPHEN 500 MG TABLET 1000 MG PO (10:00)
[2023-11-15] MEDS: LACTATED RINGERS 1,000 ML 30 ML IV CONT ×2 (10:10→14:02)
[2023-11-15] MEDS: ceFAZolin 2 GM/D5W 50 ML 2 GM/50 ML BAG IVPB (11:33)
[2023-11-15] MEDS: LIDO 1%/EPINEPHRINE 1:100,000 50 ML VIAL INFILTRATE (12:08)
[2023-11-15] MEDS: OXYMETAZOLINE HCL 0.05% NAS 15 ML BTL (*BKC) 1 SPRAY NASAL (12:09)
[2023-11-15] MEDS: fentaNYL CITRATE INJ (*CRX) 100 MCG/2 ML VIAL 25 MCG IV PUSH ×6 (14:12→14:26)
--- NOTE | 2023-11-15 14:20 | W.PM.PROC2 ---
Procedure Note - Detailed Date of Procedure 11/16/23 Pre-op Diagnosis chronic sinusitis and septal deviation Post-op Diagnosis Same Procedure Performed Endoscopic assisted septoplasty bilateral inferior turbinate reduction with outfracture bilateral image guided endoscopic maxillary an Surgeon Alphonse Velasquez MD Anesthesia General Indications see above Findings severe left caudal septal deviation reset on the maxillary crest. Large turbinates reduced nicely. Polypoid tissue in the right max scant polypoid tissue left max overall relatively normal appearing. Description of Procedure Patient identified consent verified preop. Patient brought to the operating room. Time-out performed. General anesthesia induced endotracheal tube secured. Patient prepped draped position procedure confirmed 2nd time-out performed. Image guidance initiated confirmed. Afrin-soaked pledgets placed for 5 minutes then removed. Total 10 cc injected bilateral nasal septum bilateral inferior turbinates. Hemitransection incision made left-sided septum left-sided nasal septal flap elevated right-sided nasal septal flap elevated a crossed over about a cm back removed deviated portion of septum Tate Diaz forceps Lamonte forceps osteotome. Anterior portion reset sutured down on the crust hemitransection incision closed with a 500 rotated 5 0 fast sutures. Surgiflo was placed prior to this and packed down against the inferior portion is are scant bleeding. Turbinates reduced submucosal plane using microdebrider 2.5 mm blade Surgiflo placed in the entrance point they were then outfractured [place] elevator. No bleeding. Maxillary antrostomies performed double ball tip probe under image guidance with microdebrider as well as straight through cut backbiter. Findings described above. Area copiously irrigated with sterile warm normal saline. Small Nova pack placed bilateral Lombardi splints placed bilaterally sutured anteriorly they were ensured to be lateral to the middle turbinates. Blood loss 25 cc I performed all dictated portions procedure no complications patient tolerated procedure well. Estimated Blood Loss 25 Drains No Packing Yes Pathology None sent Complications No immediate complications Condition Stable Disposition PACU [facility] Billing Surgery - Charge Forward: Surgery Billing
[2023-11-15] MEDS: HYDROmorphone HCL INJ (*CRX) 1 MG/ML SYR 0.5 MG IV PUSH ×2 (14:31→14:41)
[2023-11-15] MEDS: oxyCODONE HCL (*CRX) 5 MG TAB IR PO (15:21)
== END 2023-11-15 15:48 | disposition home or self-care (01) ==
PROVIDERS: PCP Internal Medicine; Visit Provider Otolaryngology
PROC: (CPT 30520; principal; 2023-11-15 11:45)
PROC: (CPT 31256; 2023-11-15 11:45)
DX: J32.9 Chronic sinusitis, unspecified (principal); J34.2 Deviated nasal septum; J34.3 Hypertrophy of nasal turbinates; J33.8 Other polyp of sinus; E78.5 Hyperlipidemia, unspecified; F41.9 Anxiety disorder, unspecified
CPT/HCPCS: 31256; 61782; 30520; 30140; A9270; J0690; J1100; J1170; J2250; J2371; J2405; J2704; J3010; J7040; J7120

== ENCOUNTER 2024-01-05 16:51 | Outpatient (CLI) | payer BC, SELFPAY ==
--- NOTE | ~2024-01-05 | MM_ITS ---
EXAMINATION: MM screening omer BI w joslyn HISTORY: Screening TECHNIQUE: Craniocaudal and mediolateral oblique 3-D tomosynthesis images were obtained and synthetic 2-D images were generated. CAD analysis was submitted and interpreted. COMPARISON: 09/20/2019 BREAST PARENCHYMAL COMPOSITION: Not dense: There are scattered areas of fibroglandular density. FINDINGS: There is no evidence of suspicious mass, calcification, or architectural distortion to sugg est malignancy in either breast. There has been no suspicious interval change. IMPRESSION: 1. No mammographic evidence of malignancy. 2. Recommend routine screening mammography in one year. BI-RADS CATEGORY 1 - NEGATIVE Reviewed, dictated and finalized at location A.
== END 2024-01-05 16:52 | disposition home or self-care (01) ==
PROVIDERS: PCP Internal Medicine; Visit Provider Obstetrics & Gynecology
DX: Z12.31 Encounter for screening mammogram for malignant neoplasm of breast (principal)
CPT/HCPCS: 77063; 77067

== ENCOUNTER 2024-08-03 11:40 | Emergency (ER) | payer BC, SELFPAY ==
--- NOTE | ~2024-08-03 | XR_ITS ---
EXAMINATION: XR foot RT min 3V DATE: 08/03/2024 12:09 INDICATION: Right foot injury and pain. TECHNIQUE: 5 views of right foot were obtained. COMPARISON: None. FINDINGS: There is moderate hallux valgus. There is an oblique fracture of diaphysis of fifth metatar billy. The distal fracture fragment demonstrates 2 mm dorsomedial displacement. There is mild osteoarth ritis of first metatarsophalangeal joint and some of the interphalangeal joints. There is an enthesop hyte of posterior aspect of calcaneal tuberosity. IMPRESSION: 1. Oblique fracture of diaphysis of fifth metatarsal. Reviewed, dictated and finalized at location B.
[2024-08-03 11:40] VITALS: BP 114/78; PULSE 72; RESP 16; TEMP 36.6; O2SAT 100
--- NOTE | 2024-08-03 11:55 | ED_ITS ---
HPI - Extremity Injury (Lower) General Chief Complaint: Extremity Injury, Lower Stated Complaint: Foot Injury Time Seen by Provider: 08/03/24 11:49 Source: patient Mode of arrival: ambulatory Limitations: no limitations History of Present Illness HPI Narrative: Patient is a 59-year-old female with a right foot injury after walking in her yd and tripping over the telephone pole. No other injuries. She has pain at the distal lateral aspect of the right foot. MD complaint: foot injury ( Right lateral foot) Onset (ago): hour(s) (1) Injury: Right: foot Type of Injury: blunt Place: home and street/outdoors Severity: moderate Severity scale (1-10): 4 Relieving factors: immobilization Exacerbating factors: weight bearing, movement and palpation Context: direct blow ( patient kicked into a telephone pole) Associated symptoms: swelling, able to partially bear weight and ambulatory Other symptoms: none Treatments prior to arrival: cold therapy Related Data Home Medications Medication Instructions Recorded Confirmed rosuvastatin 5 mg tablet (Crestor) 5 mg PO DAILY 10/24/19 03/22/24 coenzyme I56-sdujiwi E 100 mg-100 1 cap PO DAILY 12/16/22 03/22/24 unit capsule multivitamin-ferrous 1 tablet PO DAILY 12/16/22 03/22/24 fumarate-folic acid 18 mg-400 mcg tablet (Centrum) fluticasone propionate 50 1 - 2 spray intranasal TID 12/05/23 03/22/24 mcg/actuation nasal spray,suspension bupropion HCl 150 mg 24 hr tablet, 150 mg PO QAM 12/21/23 03/22/24 extended release Allergies Allergy/AdvReac Type Severity Reaction Status Date / Time No Known Allergies Allergy Verified 03/22/24 16:20 Review of Systems Review of Systems: All systems reviewed & are unremarkable except as noted in HPI and below Constitutional: Constitutional: Reports no additional constitutional complaints Eyes: Eyes: Reports no additional eye complaints ENT: Reports system reviewed and no additional complaints, except as documented Cardiovascular: Cardiovascular: Reports no additional cardiovascular complaints Respiratory: Respiratory: Reports no additional respiratory complaints Gastrointestinal: Gastrointestinal: Reports no additional gastrointestinal complaints Genitourinary: Genitourinary: Reports no additional female genitourinary complaints Musculoskeletal: Musculoskeletal: Reports no additional musculoskeletal complaints Integumentary/Breasts: Skin/Breast: Reports system reviewed and no additional complaints, except as docu Neurologic: Reports system reviewed and no additional complaints, except as documented Psychiatric: Psychiatric: Reports no additional psychiatric complaints Endocrine: Endocrine: Reports no additional endocrine complaints Hematologic/Lymphatic: Hematologic/Lymphatic: Reports no additional hematologic/lymphatic complaints Allergic/Immunologic: Allergic/Immunologic: Reports no additional allergic/immunologic complaints PMFSH Past Medical History Medical History Anxiety Cough with hemoptysis Encounter for screening colonoscopy Encounter for screening examination for sexually transmitted disease Hematemesis Hyperlipidemia Screening mammogram, encounter for Vomiting Surgical History Surgical History H/O colonoscopy (10/19/23) History of hysteroscopy suction D&C Missed AB History of hysteroscopy (07/16/20) Hscope D&C ; PMB ; Benign Family History Family History Father Hypertension Thyroid disorder Mother Diabetes mellitus Sibling Asthma Grandparent Alcohol abuse Hypertension Thyroid disorder Other Breast cancer maternal aunt Social History Social History Smoking status: Never smoker Second hand tobacco smoke exposure: No Alcohol intake: current Drinks per week: 2 Substance use: never Substance use type: does not use Do You Feel Safe in your Home?: Yes Lack of Transportation: No Lack of Food: Never True Current Housing: I Have Housing Concerned About Future Housing: No Difficulty Paying Gas/Electric Bills: No Difficulty Paying for Meds: No Currently Unemployed: No Education: Associate Degree Difficulty w/ Childcare or Family Care: No Living arrangements: alone Additional living arrangements comments: / spouse will not leave house Occupation/Education: occupation 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 Gender identity (if verbalized by the patient): Female Sexual Orientation (if Verbalized by the Patient): Straight or Heterosexual Spiritual care concerns: No Exam Const: General: healthy appearing Nutritional Appearance: well nourished Orientation/consciousness: patient oriented x3 HENMT: Head: normal to inspection Ears: external ears normal Face/Nose/Sinus: Normal external nose present Eyes: Conjunctivae: conjunctivae normal Pupils: Equal, round and reactive pupils present EOM: EOMs intact bilaterally Neck: Neck: normal visual inspection Chest: Chest palpation & inspection: normal inspection of the chest Resp: Effort & Inspection: normal respiratory effort and not labored Auscultation: clear to auscultation bilaterally and no crackles Cardio: Rate: regular rate Rhythm: regular rhythm Heart sounds: no murmurs GI: Inspection: non-distended GI Palp: Yes Soft to palpation and No Tenderness to palpation present (GI) Auscultation: normal bowel sounds : General: Yes bladder normal to palpation Back/Spine/Pelvis: Back: no CVA tenderness Skin: General skin exam: normal color Rashes: no rashes Wounds: wound noted and wounds noted Other: right foot lateral aspect/ small digit area base has some swelling and ecchymosis and redness with tenderness to palpation Neuro: General: patient oriented x3 Cranial nerves: Yes Nystagmus not present Speech: normal speech Extrem: General: normal to inspection Psych: Mental Status: mental status grossly normal Affect: normal affect Attitude: cooperative Course Vital Signs Vital signs: Vital Signs Temperature 36.6 C 08/03/24 11:40 Pulse Rate 72 08/03/24 11:40 Respiratory Rate 16 08/03/24 11:40 Blood Pressure 114/78 08/03/24 11:40 Pulse Oximetry 100 08/03/24 11:40 Oxygen Delivery Room Air 08/03/24 11:40 Temperature 36.6 C 08/03/24 11:40 Pulse Rate 72 08/03/24 11:40 Respiratory Rate 16 08/03/24 11:40 Blood Pressure 114/78 08/03/24 11:40 Pulse Oximetry 100 08/03/24 11:40 Oxygen Delivery Room Air 08/03/24 11:40 MDM - Extremity Injury (Lower) MDM Narrative Medical decision making narrative: patient is a 59-year-old female with a right foot injury prior to arrival. We will get some x-rays at this time. Fracture is present and we will do a postop shoe. She will see an orthopedic surgeon in the next week to 2 weeks. Pain medications sent to pharmacy. Imaging Data Attestation: I personally reviewed and interpreted this imaging study as follows: Radiologist's impression: x-ray right foot shows IMPRESSION: Oblique fracture of diaphysis of fifth metatarsal Discharge Plan Discharge Clinical Impression: Fracture of toe Qualifiers: Encounter type: initial encounter Toe: lesser toe Fracture type: closed Phalanx: proximal Fracture alignment: displaced Laterality: right Qualified Code(s): S92.511A - Displaced fracture of proximal phalanx of right lesser toe(s), initial encounter for closed fracture Patient Disposition: Home, Self-Care Condition: Stable Instructions: Foot Fracture in Adults (ED) Additional Instructions: please follow-up with the primary doctor in the next week. You will need to see orthopedic surgeon in the next 1-2 weeks to make a plan for this toe. This may require surgery. Prescriptions: New hydrocodone-acetaminophen 5-325 mg tablet 1 tablet PO Q8H PRN (Reason: pain) Qty: 20 0RF Rx Instructions: 1-2 tabs per dose No Action rosuvastatin [Crestor] 5 mg tablet 5 mg PO DAILY coenzyme [id number] E 100-100 mg-unit capsule 1 cap PO DAILY Centrum 18-400 mg-mcg tablet 1 tablet PO DAILY fluticasone propionate 50 mcg/actuation spray,suspension 1 - 2 spray intranasal TID azelastine 137 mcg (0.1 %) aerosol,spray 1 - 2 spray intranasal Q12H Qty: 90 3RF Rx Instructions: administer into each nostril. Aim back/up/out. Use with flonase bupropion HCl 150 mg tablet extended release 24 hr 150 mg PO QAM Patient Comments: dose increased to 300mg Follow-up/Referrals: Anuel Oliveira MD [Primary Care Provider] - Time of Disposition: 12:40
[2024-08-03 13:00] VITALS: BP 118/70; PULSE 64; RESP 16; O2SAT 100
== END 2024-08-03 12:59 | disposition home or self-care (01) ==
PROVIDERS: Emergency Provider Emergency Medicine; PCP Internal Medicine
DX: S92.511A Displaced fracture of proximal phalanx of right lesser toe(s), initial encounter for closed fracture (principal); W01.0XXA Fall on same level from slipping, tripping and stumbling without subsequent striking against object, initial encounter
CPT/HCPCS: 73630; 99284

== ENCOUNTER 2025-02-20 13:26 | Outpatient (CLI) | payer BC, SELFPAY ==
--- NOTE | ~2025-02-20 | MM_ITS ---
EXAMINATION: MM screening omer BI w joslyn HISTORY: Screening TECHNIQUE: Craniocaudal and mediolateral oblique 3-D tomosynthesis images were obtained and synthetic 2-D images were generated. CAD analysis was submitted and interpreted. COMPARISON: Comparison to multiple prior studies sequentially, with oldest reviewed study dated 12/27. BREAST PARENCHYMAL COMPOSITION: Not dense: There are scattered areas of fibroglandular density. FINDINGS: There is no evidence of suspicious mass, calcification, or architectural distortion to sugg est malignancy in either breast. There has been no suspicious interval change. IMPRESSION: 1. No mammographic evidence of malignancy. 2. Recommend routine screening mammography in one year. BI-RADS Category 1: Negative Reviewed, dictated and finalized at location B.
--- OUTSIDE RECORDS SUMMARY | 2025-02-20 13:31 | XMS_ITS | Clinical Summary ---
Author Organization [facility] Country Address [address] [place] [id number] Care Team Providers Care Atmospheric Scientist Name Role Phone Not Found, Stl Primary Care Provider Unavailabl e Allergies No known active allergies Medications ROSUVASTATIN CALCIUM (CRESTOR ORAL) Take by mouth. Active DIPHENHYDRAMIN E HCL (BENADRYL ORAL) Take by mouth. Activ e LORATADINE (CLARITIN ORAL) Take by mouth. Activ e FLUoxetine (PROZAC) 20 mg Oral capsule Take 20 mg by mouth daily. Active Etonogestrel-E thinyl Estradiol (NUVARING) 0.12-0.015 mg/24 hr Vaginal Ring Insert vaginally. INSERT 1 RING INTRAVAGINALLY FOR 3 WEEK, REMOVE FOR 1 WEEK. REPEAT MONTHLY 1 Device 8 1 Active Active Problems No known active problems Family History Medical History Relation Name Comments Cancer Other cervical --mate rnal aunt and great aunt Heart Disease Paternal Grandfather Relation Name Status Comments Other Paternal Grandfather Social History Tobacco Use Types Packs/Day Years Used Date Smoking Tobacco: Never Alcohol Use Standard Drinks/Week Comments No 0 (1 standard drink = 0.6 oz pur e alcohol) Comments No Sex and Gender Information Value Date Recorded Sex Assigned at Not on file Legal Sex Female 5:57 AM EMBROIDERY MACHINE OPERATOR Gender Identity Not on file Sexual Orientation Not on file 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 Not on file Not on file Last Filed Vital Signs Vital Sign Reading Time Taken Comments Blood Pressure 128/74 08/01/2024 10:52 AM CDT Pulse 68 08/01/2024 10:52 AM CDT Temperature 36.2 C (97.1 F) 08/01/2024 10:52 AM CDT Respiratory Rate 18 08/01/2024 10:52 AM CDT Oxygen Saturation 98% 08/01/2024 10:52 AM CDT Inhaled Oxygen Concentration - - Weight 67.6 kg (149 lb) 08/01/2024 10:52 AM CDT Height 168.9 cm (5' 6.5 ) 08/01/2024 10:52 AM CD T Body Mass Index 23.69 08/01/2024 10:52 AM CDT Plan of Treatment Health Maintenance Due Date Last Done Comments HPV/Cotest (21-29) 1986 HPV/Cotest (30-65) 1995 COLORECTAL SCREENING 2010 Colorectal Cancer Screening 2010 FIT-DNA Q 3 years 2010 FIT/FOBT Q 1 year 2010 Flex Sig/CT Colonography Q 5 years 2010 ZOSTER VACCINE (1 of 2) 2015 BREAST CANCER SCREENING 12/27/2017 12/27/2016 DTAP/TDAP/TD VACCINES (2 - T d or Tdap) 07/26/2021 07/26/2011 CERVICAL CANCER SCREENING 09/04/2021 PAP SMEAR 09/04/2021 09/04/2018, 08/10/2010, 08/10/2010 INFLUENZA VACCINE (#1) 2024 RSV VACCINE (60+ or ) (1 - 1-dose 75+ series) 01/09/2040 HEPATITIS B VACCINES Aged Out No long er eligible based on patient's age to complete this topic Procedures Procedure Name Priority Date/Time Associated Diagnosis Comments CERV/VAG CYTOPATH, SUREPATH W/RFLX HPV Routine 08/10/2010 2:49 PM EMBROIDERY MACHINE OPERATOR examination or test, positive result from Last 3 Months or Most Recently Relevant to Health Maintenance Results * CERV/VAG CYTOPATH, SUREPATH W/RFLX HPV (08/10/2010 2:49 PM EMBROIDERY MACHINE OPERATOR) REPORT STATUS FINAL [facility] CLINICAL INFORMATION [facility] Comment:HEALTHY LAST MENSTRUAL PERIOD [facility] Comment:[id number] PREV PAP: [facility] Comment:INFORMATION NOT PROV IDED PREV BX: [facility] Comment:INFORMATION NOT PROV IDED SOURCE [facility] Comment:Endocervix ADEQUACY: [facility] Comment: Satisfactory for evaluation. Endocervical/transformation zone component absent. INTERPRETATION [facility] Comment:Negative for intraep ithelial lesion or malignancy. COMMENT [facility] Comment: Based on the cytology result, reflex High Risk HPV DNA testing was not performed. CARD DECORATOR: [facility] Comment: BLG, CT(ASCP) Test Performed at: [facility] [address] [place] [address] JASON STALEY DO Endocervical 08/10/2010 2:49 PM EMBROIDERY MACHINE OPERATOR 08/11/2010 10:58 AM EMBROIDERY MACHINE OPERATOR Kelsie Rincon CNM PATHOLOGY/CYTOLOGY ORDERAB LES Final Result INTERFACE SYSTEM Refer to clinic/hospital department [facility] [address] [place] [address] from Last 3 Months or Most Recently Relevant to Health Maintenance Insurance [facility] BLUE ACCESS/TRUE BLUE PPO Care Teams Atmospheric Scientist Relationship Specialty Start Date End Date Not Found, Stl NO ADDRESS ON FILE PCP - General 08/10/10
--- OUTSIDE RECORDS SUMMARY | 2025-02-20 13:31 | XMS_ITS | Clinical Summary ---
Author Organization [facility] Categorical Address [address] [place] [address] Care Team Providers Care Tenterer Name Role Phone Mango King DO Primary Care Provider [phone] Susan Brewster APRN-PROFESSOR OF BUSINESS ADMINISTRATION Unavailable Source Comments [facility] Categorical,non-owned Affiliates and Associated Physician Practices is amultiple site organization consisting of ambulatory clinics and hospital sitesin [place], [place], [place] and [place]. This disclosure is being madepursuant to the Care Everywhere program and may not contain all information available regarding this patient. Last updated 18.[employer] Categorical Allergies No known active allergies Medications * Be aware that medications may not be up to date on this document. Alwaysverify current medications with the patient. fluticasone propionate (FLONASE) 50 MCG/ACT nasal spray [place] 2 Sprays into each nostril once daily 16 g 5 10/01/2016 Active aspirin (ASPIRIN) 81 MG tablet 81 mg 12/01/2012 Active Calcium Carb-Cholecalci ferol (CALCIUM CARBONATE-VITAM IN D3 PO) 12/01/2012 Active rosuvastatin (CRESTOR) 10 MG tablet Take 1 tablet by mouth once daily 90 tablet 10/04/2017 Active terbinafine (LAMISIL) 250 MG tablet Take 1 tablet by mouth once daily 30 tablet 2 01/18/2018 Active sertraline (ZOLOFT) 50 MG tablet Take 1 tablet daily 90 tablet 01/18/2018 Active loratadine-pseu doephedrine 12hr (CLARITIN-D 12) 5-120 MG tablet Take 1 tablet by mouth 04/10/2018 Active ciprofloxacin (CIPRO) 500 MG tablet 01/02/2019 Active fluconazole (DIFLUCAN) 150 MG tablet Take one tablet PO day one then repeat a dose on day 3. 2 tablet 01/10/2019 Active sertraline (ZOLOFT) 50 MG tablet TAKE 1 TABLET DAILY 90 tablet 1 04/17/2019 Active Active Problems Problem Noted Date Diagnosed Date Onychomycosis - right toe 01/18/2018 Routine general medical exam ination at a health care facility 01/18/2018 Depression 10/25/2017 Anxiety 10/25/2017 Hyperlipidemia 08/21/2010 Seasonal allergies 12/05/2008 Headache 09/01/2008 Overview (08/10/2015): Resolved Problems Problem Noted Date Diagnosed Date Resolved Date Routine general medical exam ination at a health care facility 04/12/2014 01/18/2018 Immunizations Immunization Administration Dates Next Due TDAP (7yrs+) 07/26/2011 Family History Medical History Relation Name Comments Cancer - Breast Maternal Aunt Hypertension Mother Hypertension Sister Relation Name Status Comments Father Alive Maternal Aunt Mother Alive Sister Social History Tobacco Use Types Packs/Day Years Used Date Smoking Tobacco: Never Smokeless Tobacco: Never Alcohol Use Standard Drinks/Week Comments No 0 (1 standard drink = 0.6 oz pur e alcohol) Comments No Sex and Gender Information Value Date Recorded Sex Assigned at Not on file Legal Sex Female 4:42 AM CHIEF PROGRAM OFFICER Gender Identity Not on file Sexual Orientation Not on file 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 Not on file Not on file Last Filed Vital Signs Vital Sign Reading Time Taken Comments Blood Pressure 128/80 01/10/2019 3:38 PM CDT Pulse 82 01/10/2019 3:38 PM CDT Temperature 36.8 C (98.3 F) 01/18/2018 4:00 PM CDT Respiratory Rate 18 01/10/2019 3:38 PM CDT Oxygen Saturation 98% 01/10/2019 3:38 PM CDT Inhaled Oxygen Concentration - - Weight 92.5 kg (204 lb) 01/10/2019 3:38 PM CDT Height 175.3 cm (5' 9 ) 09/04/2018 3:25 PM CHIEF PROGRAM OFFICER Body Mass Index 30.13 09/04/2018 3:25 PM CHIEF PROGRAM OFFICER Plan of Treatment Health Maintenance Due Date Last Done Comments COLOGUARD (AGES 45-75) - COLON CA SCREENING 1965 COLON MONITORING 1965 COLONOSCOPY - COLON CA SCREENING 1965 CT COLONOGRAPHY - COLON CA SCREENING 1965 Colorectal Cancer Screening 1965 FIT - COLON CA SCREENING 1965 FLEX SIG - COLON CA SCREENING 1965 HIV SCREENING 01/09/1980 HEPATITIS C SCREENING 01/04/1983 PNEUMOCOCCAL VACCINE 50+ (1 of 1 - PCV) 2015 ZOSTER VACCINE (1 of 2) 2015 MAMMOGRAM 12/27/2018 12/27/2016, 12/2014, 10/23/2013, Additional history exists PAP SMEAR 09/04/2019 09/04/2018, 12/2017, 10/31/2014, Additional history exists SCREENING FOR DIABETES 01/01/2020 7, 09/08/2015, 05/09/2014, Additional history exists DTAP/TDAP/TD VACCINES (2 - Td or Tdap) 07/26/2021 07/26/2011 COVID-19 VACCINE ( season) 2024 DEPRESSION SCREENING 10/03/2024 INFLUENZA VACCINE (Season Ended) 2025 Respiratory Syncytial Virus (RSV) Vaccine Pt: or over 60 yrs (1 - 1-dose 75+ series) 01/09/2040 HEPATITIS B VACCINE Aged Out No longe r eligible based on patient's age to complete this topic HIB VACCINE Aged Out No longer eligi ble based on patient's age to complete this topic HPV VACCINE Aged Out No longer eligi ble based on patient's age to complete this topic MENINGOCOCCAL (Group B) VACCINE SHARED DECISION-MAKING Aged Out No longer eligible based on patient's age to complete this topic MENINGOCOCCAL GROUPS A/C/Y/W VACCINE Aged Out No longer eligible based on patient's age to complete this topic Goals Goal Patient Goal Type Associated Problems Recent Progress Patient-Stated? Author Decrease anxiety / depression / stress levels Lifestyle No Self, Petra Torres Procedures Procedure Name Priority Date/Time Associated Diagnosis Comments PAP IGP CERVICAL CANCER AND CT/NG SCREENING Routine 09/04/2018 3:58 PM CHIEF PROGRAM OFFICER Well woman exam with routine gynecological exam Cervical cancer screening COMPREHENSIVE METABOLIC PANEL Routine 12/31/2016 9:35 AM CDT Other hyperlipidemia MAMMO BILAT SCREENING Routine 12/27/2016 3:12 PM CDT Visit for screening mammogram from Last 3 Months or Most Recently Relevant to Health Maintenance Results * PAP IGP CERVICAL CANCER AND CT/NG SCREENING (09/04/2018 3:58 PM CHIEF PROGRAM OFFICER) Age Gdln ACOG Testing 30-65 [facility] ACCOUNT BILL PART OF UTERINE CERVIX / Unknown 09/04/2018 3:58 PM CHIEF PROGRAM OFFICER 09/05/2018 Narrative [facility] ACCOUNT BILL - 09/07/2018 6:13 AM CHIEF PROGRAM OFFICER No. of containers..01 ThinPrep Vial Resulting Agency Comment [facility] [address] [id number] Susan Brewster PURIFICATION SUPERVISOR-PROFESSOR OF BUSINESS ADMINISTRATION LAB - PATHOLOGY/CYTOL OGY ORDERABLES Final Result [facility] ACCOUNT BILL [address] [place] [address] * (ABNORMAL) COMPREHENSIVE METABOLIC PANEL (12/31/2016 9:35 AM CDT) Glucose 82 74 - 106 mg/dL [facility] ACCOUNT BILL BUN 14 7 - 21 mg/dL [facility] ACCOUNT BILL Creatinine 0.85 0.50 - 1.30 mg/dL [facility] ACCOUNT BILL eGFR by MDRD >60 >60 mL/min/1.7 3m2 [facility] ACCOUNT BILL eGFR by MDRD >60 >60 mL/min/1.7 3m2 [facility] ACCOUNT BILL Sodium 141 136 - 145 mmol/L [facility] ACCOUNT BILL Potassium 4.3 3.5 - 5.1 mmol/L [facility] ACCOUNT BILL Chloride 107 98 - 107 mmol/L [facility] ACCOUNT BILL CO2 25 22 - 31 mmol/L [facility] ACCOUNT BILL Calcium 8.4(L) 8.5 - 10.1 mg/dL [facility] ACCOUNT BILL Protein Total 6.6 6.4 - 8.2 gm/dL [facility] ACCOUNT BILL Albumin 3.3(L) 3.4 - 5.0 gm/dL [facility] ACCOUNT BILL Bilirubin Total 0.4 0.2 - 1.0 mg/dL [facility] ACCOUNT BILL Alkaline Phosphatase 40 38 - 126 U/L [facility] ACCOUNT BILL AST 8 5 - 40 U/L [facility] ACCOUNT BILL ALT 16 13 - 61 U/L [facility] ACCOUNT BILL Blood BLOOD SPECIMEN / Unknown 12/31/2016 9:35 AM CDT 12/31/2016 Narrative Resulting Agency Comment [address] [phone] Mango King DO LAB - CHEMISTRY ORDERABLES Final Result [facility] ACCOUNT BILL [address] [place] [address] * MAMM SCREENING DIGITAL IMAGE BILAT [id number] (12/27/2016 3:12 PM CDT) Anatomical Region Laterality Modality Breast Bilateral Mammography 12/28/2016 12:2 5 PM CDT Impressions 12/28/2016 12:26 PM CDT Mild generalized interval involutional changes bilaterally. No interval change otherwise seen in either breast to suggest malignancy. BI-RADS category 1. Negative mammogram. RECOMMENDATIONS: Routine mammograms in one year. No risk assessment was performed due to technical factors. Narrative 12/28/2016 12:26 PM CDT Screening mammogram: History: Screening mammogram. Technique: Two views each of both breasts were obtained on 12/27/2016. The examination was performed using digital technique with interpretation assisted by CAD analysis. Comparison: Screening mammograms on 11/05/2014, 10/23/2013 and 07/08/2011. Breast composition: Heterogeneously dense, which could obscure detection of small masses. Findings: There are mild generalized interval involutional changes bilaterally. There is no interval development of a spiculated mass, parenchymal retraction, suspicious calcification, abnormal vascularity or skin thickening to suggest malignancy in either breast. Mango King DO MAMMO ORDERABLES Final Res ult from Last 3 Months or Most Recently Relevant to Health Maintenance Insurance [facility] [id number] [place] [address] [facility] SELF PAY NO INSURANCE Member Subscriber Plan / Payer (Ef fective for All Dates) Name:Lina Barragan Member ID:Not on file Relation to Subscriber:Not on file Name:LAURELLINA Subscriber ID:Not on file Address: [address] [place], [place] [address] [place] [address] Payer ID:Not on file Group ID:Not on file Type:Self Pay Address: [place] [place] [place] [address] [facility] SELF PAY NO INSURANCE Member Subscriber Plan / Payer (Ef fective for All Dates) Name:Lina Barragan Member ID:Not on file Relation to Subscriber:Not on file Name:LINA BARRAGAN Subscriber ID:Not on file Address: [address] [place], [place] [address] [place] [address] Payer ID:Not on file Group ID:Not on file Type:Self Pay Address: [place] [place] [address] [facility] SELF PAY NO INSURANCE Member Subscriber Plan / Payer (Ef fective for All Dates) Name:Lina Barragan Member ID:Not on file Relation to Subscriber:Not on file Name:LINA BARRAGAN Subscriber ID:Not on file Address: [address] [place] [phone] Payer ID:Not on file Group ID:Not on file Type:Self Pay Address: [place], [place] Care Teams Tenterer Relationship Specialty Start Date End Date Mango King DO [address] [facility] [place] [address] PCP - General 12/03/08 Susan Brewster APRN-PROFESSOR OF BUSINESS ADMINISTRATION [address] [place] [id number] Obstetrics and Gynecology 09/07/18
--- OUTSIDE RECORDS SUMMARY | 2025-02-20 13:31 | XMS_ITS | Referral Summary ---
Author Organization [facility] Leonardo Villar Address [address] [place] [address] Care Team Providers Care Warehouse Material Handler Name Role Phone Jose Luis Ho Primary Care Provider [phone] Allergies No known active allergies Medications multivitamin (MULTIPLE VITAMINS DAILY) tablet tablet Take as directed 0 0 9 Active rosuvastatin (CRESTOR) 10 mg tablet take 1 tablet (10MG) by ORAL route every day 0 0 Active etonogestrel-et hinyl estradiol (NUVARING) 0.12-0.015 mg/24 hr vaginal ring insert 1 vaginal ring by vaginal route every month leave in place for 3 weeks, remove for 1 week 0 3 Active calcium carbonate-vitam in D3 (CALCIUM 500 + D) 1,250mg (500mg elemental) - 200 units per tablet 0 3 Active aspirin 81 mg tablet take 1 tablet (81MG) by oral route every day 0 3 Active zolpidem (AMBIEN) 10 mg tablet take 1 tablet by oral route every day at bedtime 0 0 4 Active Additional Information Patient not taking.Reported on 04/10/2018 fluticasone (FLONASE) 50 mcg/actuation nasal spray spray 1 spray by intranasal route every 2 days in each nostril 60 spray 0 6 Active Additional Information Patient not taking.Reported on 04/10/2018 metaxalone (SKELAXIN) 800 mg tablet Take one by mouth three times per day as needed 60 0 8 Active Additional Information Patient not taking.Reported on 04/10/2018 naproxen (ANAPROX DS) 550 mg tablet Take one by mouth two times per day with meals 30 0 8 Active Additional Information Patient not taking.Reported on 04/10/2018 HYDROcodone-dom taminophen (VICODIN) 5-500 mg per tablet Take one by mouth one time per day at bedtime as needed 10 0 8 Active Additional Information Patient not taking.Reported on 04/10/2018 terbinafine (LamiSIL) 250 mg tablet 8 Active loratadine-pseu doephedrine (CLARITIN-D 12-hour) 5-120 mg tablet extended release 12 hr Take 1 tablet by mouth every 12 (twelve) hours as needed (congestion and drainage). 60 tablet 8 Active Active Problems No known active problems Social History Tobacco Use Types Packs/Day Years Used Date Smoking Tobacco: Never Smokeless Tobacco: Never Alcohol Use Standard Drinks/Week Comments Yes 0 (1 standard drink = 0.6 oz pur e alcohol) Comments Unknown Sex and Gender Information Value Date Recorded Sex Assigned at Not on file Legal Sex Female 7:11 PM EMPLOYMENT LEGAL ASSISTANT Gender Identity Not on file Sexual Orientation Not on file Last Filed Vital Signs Vital Sign Reading Time Taken Comments Blood Pressure 112/76 04/10/2018 4:18 PM CDT Pulse 77 04/10/2018 4:18 PM CDT Temperature 37 C (98.6 F) 04/10/2018 4:18 PM CDT Respiratory Rate - - Oxygen Saturation 97% 04/10/2018 4:18 PM CDT Inhaled Oxygen Concentration - - Weight 90.6 kg (199 lb 12.8 oz) 04/10/2018 4:18 PM CDT Height 177.8 cm (5' 10 ) 04/10/2018 4:18 PM CDT Body Mass Index 28.67 04/10/2018 4:18 PM CDT Plan of Treatment Not on file Insurance [facility] Care Teams Warehouse Material Handler Relationship Specialty Start Date End Date Jose Luis Ho PA [address] [place] [address] PCP - General Family Practice 01/03/19
--- OUTSIDE RECORDS SUMMARY | 2025-02-20 13:31 | XMS_ITS | Data Portability ---
Author Organization [facility] Address [address] [place] [address] Care Team Providers Care Big Data Developer Name Role Phone JACKIE HO Primary Care Provider Assessment No assessment recorded. Plan of Treatment Reminders Order Date Submit Date Provider Last Modified By Organization Details Last Modified Time Details Appointments None recorded. Lab lipid panel, serum 2018 019 [facility], [address] [place] [address] Jett, [facility] [address], [place], [address], 9 08:34:58 CMP, serum or plasma 2018 019 [facility], [address] [place], [place] [address] Jett, [facility] [address], [place], [address], 9 08:34:57 CBC w/ auto diff 2018 019 [facility], [address] [place] [address], [facility] [address], [place], [address], 9 08:34:56 TSH + free T4, serum 2018 019 [facility], [address] [place], [place] [address] Jett, [address], [place], [address], 9 08:34:56 Referral gastroente rologist referral 2018 019 elmer Henderson, [address] [place] [address] , [address], [place], [address], 9 10:43:19 Procedures None recorded. Surgeries None recorded. Imaging None recorded. Medication Orders Diflucan 200 mg tablet 2018 019 [id number], [address], [place], [id number], 9 17:09:23 Cipro 500 mg tablet 2018 019 [id number], [address], [place], [id number], 9 17:05:34 Guaiatussi n AC 10 mg-100 mg/5 mL oral liquid 2018 019 [facility][id number], [address], [place], [id number], 9 12:41:42 Patient TargetsNo targets recorded. 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 Referral for Screening for malignant neoplasm of colon Referring Physician: Jackie Ho, Family Medicine, Encounter Date: 01/02/2019 Results Created Date Observation Date Name Description Value Unit Range Abnormal Flag Note LastModifiedBy Organization Detail LastModifiedTime 01/03/2001/04/2019 TSH + free T4, serum TSH 1.960 uIU/m L 0.450- 4.500 Not Available [facility] ([facility]) [address] [place], [address], 01/04/2019 08:34:56 01/03/2001/04/2019 TSH + free T4, serum T4,free(dire ct) 1.39 NG/dL 0.82-1 .77 Not Available [facility] ([facility]) [address] [place], [address], 01/04/2019 08:34:56 01/03/2001/04/2019 CBC w/ auto diff WBC 5.4 x10e3 /uL 3.4-10 .8 Not Available [facility] ([facility]) [address] [place], [address], 01/04/2019 08:34:56 01/03/2001/04/2019 CBC w/ auto diff RBC 4.31 x10e6 /uL 3.77-5 .28 Not Available [facility] ([facility]) [address] [place], [address], 01/04/2019 08:34:56 01/03/2001/04/2019 CBC w/ auto diff hemoglobin 12.2 g/dL 11.1-1 5.9 Not Available [facility] ([facility]) [address] [facility], [place], [address], 01/04/2019 08:34:56 01/03/2001/04/2019 CBC w/ auto diff hematocrit 37.4 % 34.0-4 6.6 Not Available [facility] ([facility]) [address] [facility], [place], [address], 01/04/2019 08:34:56 01/03/2001/04/2019 CBC w/ auto diff MCV 87 fL 79-97 Not Available [facility] ([facility]) [address] [place], [address], 01/04/2019 08:34:56 01/03/2001/04/2019 CBC w/ auto diff MCH 28.3 pg 26.6-3 3.0 Not Available [facility] ([facility]) [address] [place], [address], 01/04/2019 08:34:56 01/03/2001/04/2019 CBC w/ auto diff MCHC 32.6 g/dL 31.5-3 5.7 Not Available [facility] ([facility]) [address] [facility], [place], [address], 01/04/2019 08:34:56 01/03/20 19 01/04/2019 CBC w/ auto diff RDW 13.7 % 12.3-1 5.4 Not Available [facility] ([facility]) [address] [facility], [place], [address], 01/04/2019 08:34:56 01/03/20 19 01/04/2019 CBC w/ auto diff platelets 197 x10e3 /uL 150-37 9 Not Available [facility] ([facility]) [address] [facility], [place], [address], 01/04/2019 08:34:56 01/03/20 19 01/04/2019 CBC w/ auto diff neutrophils 82 % not estab. Not Available [facility] ([facility]) [address] [facility], [place], [address], 01/04/2019 08:34:56 01/03/2001/04/2019 CBC w/ auto diff lymphs 9 % not estab. Not Available [facility] ([facility]) [address] [facility], [place], [address], 01/04/2019 08:34:56 01/03/2001/04/2019 CBC w/ auto diff monocytes 6 % not estab. Not Available [facility] ([facility]) [address] [facility], [place], [address], 01/04/2019 08:34:56 01/03/2001/04/2019 CBC w/ auto diff eos 2 % not estab. Not Available [facility] ([facility]) [address] [facility], [place], [address], 01/04/2019 08:34:56 01/03/2001/04/2019 CBC w/ auto diff basos 0 % not estab. Not Available [facility] ([facility]) [address] [facility] [place], [address], 01/04/2019 08:34:56 01/03/20 19 01/04/2019 CBC w/ auto diff immature cells DOLL WIGS HACKLER Not Available [facility] ([facility]) [address] [facility], [place], [address], 01/04/2019 08:34:56 01/03/2001/04/2019 CBC w/ auto diff neutrophils (absolute) 4.5 x10e3 /uL 1.4-7. 0 Not Available [facility] ([facility]) [address] [facility], [place], [address], 01/04/2019 08:34:56 01/03/2001/04/2019 CBC w/ auto diff lymphs (absolute) 0.5 x10e3 /uL 0.7-3. 1 below low normal Not Available [facility] ([facility]) [address] [facility], [place], [address], 01/04/2019 08:34:56 01/03/2001/04/2019 CBC w/ auto diff monocytes(ab solute) 0.3 x10e3 /uL 0.1-0. 9 Not Available [facility] ([facility]) [address] [facility], [place], [address], 01/04/2019 08:34:56 01/03/2001/04/2019 CBC w/ auto diff eos (absolute) 0.1 x10e3 /uL 0.0-0. 4 Not Available [facility] ([facility]) [address] [facility], [place], [address], 01/04/2019 08:34:56 01/03/2001/04/2019 CBC w/ auto diff baso (absolute) 0.0 x10e3 /uL 0.0-0. 2 Not Available [facility] ([facility]) [address] [facility], [place], [address], 01/04/2019 08:34:56 01/03/2001/04/2019 CBC w/ auto diff immature granulocytes 1 % not estab. Not Available [facility] ([facility]) [address] [facility] [place], [address], 01/04/2019 08:34:56 01/03/2001/04/2019 CBC w/ auto diff immature grans (abs) 0.0 x10e3 /uL 0.0-0. 1 Not Available [facility] ([facility]) [address] [facility], [place], [address], 01/04/2019 08:34:56 01/03/2001/04/2019 CBC w/ auto diff NRBC DOLL WIGS HACKLER Not Available [facility] ([facility]) [address] [place], [address], 01/04/2019 08:34:56 01/03/2001/04/2019 CBC w/ auto diff hematology comments: DOLL WIGS HACKLER Not Available [facility] ([facility]) [address] [facility], [place], [address], 01/04/2019 08:34:56 01/03/2001/04/2019 CMP, serum or plasm a glucose 89 mg/dL 65-99 Not Available [facility] ([facility]) [address] [place], [address], 01/04/2019 08:34:57 01/03/2001/04/2019 CMP, serum or plasm a BUN 13 mg/dL 6-24 Not Available [facility] ([facility]) [address] [place], [address], 01/04/2019 08:34:57 01/03/2001/04/2019 CMP, serum or plasm a creatinine 0.86 mg/dL 0.57-1 .00 Not Available [facility] ([facility]) [address] [place], [address], 01/04/2019 08:34:57 01/03/2001/0401/04/2019 CMP, serum or plasm a eGFR if nonafricn AM 77 mL/mi n/1.7 3 >59 Not Available [facility] ([facility]) [address] [facility] [place], [address], 01/04/2019 08:34:57 01/03/20 19 01/04/2019 CMP, serum or plasm a eGFR if africn AM 89 mL/mi n/1.7 3 >59 Not Available [facility] ([facility]) [address] [facility], [place], [address], 01/04/2019 08:34:57 01/03/20 19 01/04/2019 CMP, serum or plasm a BUN/creatini ne ratio 15 9-23 Not Available [facility] ([facility]) [address] [place], [address], 01/04/2019 08:34:57 01/03/2001/04/2019 CMP, serum or plasm a sodium 142 mmol/ L 134-14 4 Not Available [facility] ([facility]) [address] [facility] [place], [address], 01/04/2019 08:34:57 01/03/2001/04/2019 CMP, serum or plasm a potassium 3.9 mmol/ L 3.5-5. 2 Not Available [facility] ([facility]) [address] [place], [address], 01/04/2019 08:34:57 01/03/2001/04/2019 CMP, serum or plasm a chloride 102 mmol/ L 96-106 Not Available [facility] ([facility]) [address] [place], [address], 01/04/2019 08:34:57 01/03/2001/04/2019 CMP, serum or plasm a carbon dioxide, total 22 mmol/ L 20-29 Not Available [facility] ([facility]) [address] [place], [address], 01/04/2019 08:34:57 01/03/2001/04/2019 CMP, serum or plasm a calcium 9.3 mg/dL 8.7-10 .2 Not Available [facility] ([facility]) [address] [facility] [place], [address], 01/04/2019 08:34:57 01/03/2001/04/2019 CMP, serum or plasm a protein, total 7.2 g/dL 6.0-8. 5 Not Available [facility] ([facility]) [address] [facility] [place], [address], 01/04/2019 08:34:57 01/03/2001/04/2019 CMP, serum or plasm a albumin 4.6 g/dL 3.5-5. 5 Not Available [facility] ([facility]) [address] [place], [address], 01/04/2019 08:34:57 01/03/2001/04/2019 CMP, serum or plasm a globulin, total 2.6 g/dL 1.5-4. 5 Not Available [facility] ([facility]) [address] [place], [address], 01/04/2019 08:34:57 01/03/2001/04/2019 CMP, serum or plasm a A/G ratio 1.8 1.2-2. 2 Not Available [facility] ([facility]) [address] [place], [address], 01/04/2019 08:34:57 01/03/2001/04/2019 CMP, serum or plasm a bilirubin, total 0.4 mg/dL 0.0-1. 2 Not Available [facility] ([facility]) [address] [place], [address], 01/04/2019 08:34:57 01/03/2001/04/2019 CMP, serum or plasm a alkaline phosphatase 44 IU/L 39-117 Not Available [facility]) [address] [facility], [place], [address], 01/04/2019 08:34:57 01/03/2001/04/2019 CMP, serum or plasm a AST (SGOT) 24 IU/L 0-40 Not Available [facility] ([facility]) [address] [facility], [place], [address], 01/04/2019 08:34:57 01/03/2001/04/2019 CMP, serum or plasm a ALT (SGPT) 20 IU/L 0-32 Not Available [facility] ([facility]) [address] [facility] [place], [address], 01/04/2019 08:34:57 01/03/2001/04/2019 lipid panel , serum cholesterol, total 162 mg/dL 100-19 9 Not Available [facility] ([facility]) [address] [place], [address], 01/04/2019 08:34:58 01/03/2001/04/2019 lipid panel , serum triglyceride s 87 mg/dL 0-149 Not Available [facility] ([facility]) [address] [place], [address], 01/04/2019 08:34:58 01/03/2001/04/2019 lipid panel , serum HDL cholesterol 64 mg/dL >39 Not Available [facility] ([facility]) [address] [place], [address], 01/04/2019 08:34:58 01/03/2001/04/2019 lipid panel , serum VLDL cholesterol mainor 17 mg/dL 5-40 Not Available [facility] ([facility]) [address] [place], [address], 01/04/2019 08:34:58 01/03/2001/04/2019 lipid panel , serum LDL cholesterol calc 81 mg/dL 0-99 Not Available [facility] ([facility]) [address] [facility], [place], [address], 01/04/2019 08:34:58 01/03/20 19 01/04/2019 lipid panel , serum comment: DOLL WIGS HACKLER Not Available [facility] ([facility]) [address] [facility], [place], [address], 01/04/2019 08:34:58 01/03/2001/04/2019 cardi ovasc ular asses sment panel , serum interpretati on Note Suppl ement al repor t is avail able. Not Available [facility] ([facility]) [address] [facility], [place], [address], 01/04/2019 08:34:58 01/03/2001/04/2019 cardi ovasc ular asses sment panel , serum pdf image . Not Available [facility] ([facility]) [address] [facility], [place], [address], 01/04/2019 08:34:58 Result Notes None recorded. Medical Equipment None Reported. Allergies No known drug allergies Medications Name Sig Start Date Stop Date Status Note LastModified by Organization Details LastModified Time terbinafine HCl 250 mg tablet active Not Available Not Available Not Available Guaiatussin AC 10 mg-100 mg/5 mL oral liquid Take 10 mL every 4 hours by oral route as needed for 10 days. 2018 active Not Available Not Available Not Avai lable Cipro 500 mg tablet Take 1 tablet every 12 hours by oral route for 10 days. 2018 active Not Available Not Available Not Avai lable Aspir-81 mg tablet,delaye d release Take 1 tablet every day by oral route. active Not Available Not Available No t Available sertraline 50 mg tablet 01/02 completed Not Available Not Available Not Available Diflucan 200 mg tablet Take 1 tablet every 72 hours by oral route. 2018 active Not Available Not Available Not Avai lable amoxicillin 875 mg-potassium clavulanate 125 mg tablet 01/02 completed Not Available Not Available Not Available NuvaRing 0.12 mg-0.015 mg/24 hr vaginal 01/02 completed Not Available Not Available Not Available rosuvastatin 10 mg tablet take 1 tablet daily active Not Available Not Available No t Available Vitals Date Recorded Body weight Body height Body mass index (BMI) Body temperature Oxygen saturation Oxygen saturation in Arterial blood by Pulse oximetry Heart rate Systolic blood pressure Diastolic blood pressure Provider Name and Address Organization Details Last Updated DateTime 9 [address]355.8 4 g 175.26 cm 30.1 kg/m2 98.6 [degF] 96 % 96 % 105 /min 120 mm[Hg] 82 mm[Hg] Allyson Jules MA [facility] 9 16:48:40 Social History Question Answer Notes LastModified by Organizat ion Details LastModified Time Tobacco Smoking Status Never Smoker Allyson Jules MA null, [facility] 01/02/2019 16:45:23 What Was The Date Of Your Most Recent Tobacco Screening? 01/02/2019 Information n ot available 04/26/2019 Sex: Unknown Functional Status None recorded. Mental Status None recorded. Family History Relationship Description Onset Age of this Age Resolved Age Notes LastModified by Organization Details LastModified Time Father Hypercholesmartine webster [email or web address] Not available 11/2018 16:45:03 Mother Hyperchbri webster [email or web address] Not available 11/2018 16:45:13 Medical History Condition Response Coronary Artery Disease N Other N Atrial Fibrillation N High Blood Pressure N Depression N COPD N Blood Clots N Anxiety Disorder N Muscle, Joint, or Bone Problems N Acid Reflux (GERD) N Cancer N Stroke N High Cholesterol Y Liver Disease N Headaches N Kidney or Bladder Problems N Thyroid Problems N GI Problems N Skin Problems N Anemia N Heart Attack (AL) N Diabetes N Seizures/Epilepsy N Asthma N Allergies Y Hepatitis N Heart Failure N Osteoporosis N Gynecological HistoryNo gynecological history recorded. Obstetrics History GPAL:G 0 P 0 0 0 0 Past Encounters Encounter ID Performer Location Encounter Start Date Encounter Closed Date Diagnosis/Indication Diagnosis SNOMED-CT Code Diagnosis ICD10 Code Diagnosis Note [id number] Jackie Ho PA-C [facility] [address] [place] [address] 01/02/2019 16:35:11 01/02/2019 17:39:53 Acute bronchitis with bronchospasm 86771566 J20.9 Mixed hyperlipidemia 267 066954 E78.2 Screening for malignant neoplasm of colon 514207674 Z12.11 Candidiasis of vagina 72 914750 B37.3 Health Concerns Section Related Observation LastModified by Organization Detai ls LastModified Time None Recorded Concern Status LastModified by Organization Details LastModified Time None Recorded Advance Directives Directive None Recorded Payers Encounter Date Sequence Insurance Name Policy Number Policy Dickey Covered Member ID Dickey Member ID Guarantor Name 01/02/2019 1 [facility] ([place] [id number] Sharad José [id number] Kelsie Kumar Notes Date Note Type Note Provider Name and Address Organization Details Recorded Time 01/02/2019 text/html symptoms began yesterday..otc not helping..also nausea history of cholesterol issues Jackie Ho PA-C Attn: Accounting[address] [facility], [place], [address], [facility] 01/02/2019 17:09:42 OBGyn Episode No OBEpisode recorded.
--- OUTSIDE RECORDS SUMMARY | 2025-02-20 13:31 | XMS_ITS | Clinical Summary ---
Author Organization [facility] Leonardo Villar Address [address] [facility] [place] [address] Care Team Providers Care Learning And Development Director Name Role Phone Jose Luis Ho Primary Care Provider [phone] Allergies No known active allergies Medications multivitamin [...] Active Active Problems No known active problems Medical History Medical History Date Comments History of multiple allergies Al lergies Pneumonia Pneumonia Sinusitis Sinusitis Hyperlipidemia Hyperlipidemia Family History Medical History Relation Name Comments Hypertension Sister Hypertension; Relation Name Status Comments Sister Social History Tobacco Use Types Packs/Day Years Used Date Smoking Tobacco: Never Smokeless Tobacco: Never Alcohol Use Standard Drinks/Week Comments Yes 0 (1 standard drink = 0.6 oz pur e alcohol) Comments Unknown Sex and Gender Information Value Date Recorded Sex Assigned at Not on file Legal Sex Female 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 Gender Identity Not on file Sexual Orientation Not on file Obstetrics History Last Filed Vital Signs Vital Sign Reading Time Taken Comments Blood Pressure 112/76 04/10/2018 4:18 PM CDT Pulse 77 04/10/2018 4:18 PM CDT Temperature 37 C (98.6 F) 04/10/2018 4:18 PM CDT Respiratory Rate - - Oxygen Saturation 97% 04/10/2018 4: 18 PM CDT Inhaled Oxygen Concentration - - Weight 90.6 kg (199 lb 12.8 oz) 04/10/2018 4:18 PM CDT Height 177.8 cm (5' 10 ) 04/10/2018 4:18 PM CDT Body Mass Index 28.67 04/10/2018 4:18 PM CDT Plan of Treatment Not on file Insurance [employer] Care Teams Learning And Development Director Relationship Specialty Start Date End Date Jose Luis Ho PA [address] [place] [address] PCP - General Family Practice 01/03/19
== END 2025-02-20 13:27 | disposition home or self-care (01) ==
LOC: ANHIMG 13:28
PROVIDERS: PCP Internal Medicine; Visit Provider Obstetrics & Gynecology
DX: Z12.11 Encounter for screening for malignant neoplasm of colon (principal)
CPT/HCPCS: 77063; 77067

== ENCOUNTER 2025-08-31 14:09 | Emergency (ER) | payer BC, SELFPAY ==
--- NOTE | ~2025-08-31 | XR_ITS ---
EXAMINATION: XR forearm RT 2V, 08/31/2025 14:57 WORKFORCE CONSULTANT HISTORY: fall COMPARISON: No comparisons available. Findings: Fractures of the distal radius and ulna are redemonstrated, there is no additional proximal fracture identified. No significant degenerative changes. Soft tissues unremarkable. Impression: Fractures of the distal radius and ulna are redemonstrated Reviewed, dictated and finalized at location P. FORCE CONSULTANT Impression: Fractures of the distal radius and ulna are redemonstrated
--- NOTE | ~2025-08-31 | XR_ITS ---
EXAMINATION: XR wrist RT min 3V, 08/31/2025 14:57 GENERAL AGENT HISTORY: fall COMPARISON: No comparisons available. Findings: There is a comminuted impacted fracture of the distal radius with intra- articular extension. Nondisplaced fracture of the distal ulna.Mild angulation noted towards the dorsal aspect. No significant degenerative changes. Soft tissue swelling. Impression: Fractures detailed above Reviewed, dictated and finalized at location P. RAL AGENT Impression: Fractures detailed above
[2025-08-31 14:09] VITALS: BP 139/71; PULSE 84; RESP 20; TEMP 36.9; O2SAT 100
[2025-08-31] MEDS: ONDANSETRON INJ 4 MG/2 ML VIAL IV PUSH (14:37)
[2025-08-31] MEDS: MORPHINE SULFATE (*CRX) 4 MG/ML INJ IV PUSH ×2 (14:37→15:54)
[2025-08-31 14:39] VITALS: BP 133/71; PULSE 73; RESP 13; O2SAT 99
[2025-08-31 15:09] VITALS: BP 153/100; PULSE 77; RESP 12; O2SAT 100
--- NOTE | 2025-08-31 15:48 | ED.FALL ---
HPI - Fall General Chief Complaint: Fall Stated Complaint: fall/ arm deformity Time Seen by Provider: 08/31/25 14:11 Source: patient Mode of arrival: EMS Limitations: no limitations History of Present Illness HPI Narrative: 6 60-year-old with a history of hyperlipidemia here with a complains of right wrist and forearm pain. Patient states that she slid on ice and fell on outstretched hand. Denies head and neck injuries. Complains of intense pain. complaint: fall Onset (ago): minute(s) (30) Fall from: standing Fall witnessed: yes, by family Place fall occurred: home Loss of consciousness: none Prolonged down time: no Symptoms prior to fall: none Context: tripped/slipped Location of injury - extremities: Right: forearm Severity: moderate Quality: aching Associated symptoms (after fall): denies Related Data Home Medications ?Medication ?Instructions ?Recorded ?Confirmed ?Last Taken ?Type rosuvastatin 5 mg tablet (Crestor) 5 mg PO DAILY 10/24/19 08/07/25 11/12/23 History coenzyme [id number] E 100 mg-100 1 cap PO DAILY 12/16/22 08/07/25 11/11/23 History unit capsule multivitamin-ferrous 1 tablet PO DAILY 12/16/22 08/07/25 11/11/23 History fumarate-folic acid 18 mg-400 mcg tablet (Centrum) fluticasone propionate 50 1 - 2 spray intranasal TID 12/05/23 08/07/25 Unknown History mcg/actuation nasal spray,suspension Allergies Allergy/AdvReac Type Severity Reaction Status Date / Time No Known Allergies Allergy Verified 08/07/25 09:48 Review of Systems Review of Systems: All systems reviewed & are unremarkable except as noted in HPI and below Constitutional: Constitutional: Reports no additional constitutional complaints Eyes: Eyes: Reports no additional eye complaints ENT: Reports system reviewed and no additional complaints, except as documented Cardiovascular: Cardiovascular: Reports no additional cardiovascular complaints Respiratory: Respiratory: Reports no additional respiratory complaints Gastrointestinal: Gastrointestinal: Reports no additional gastrointestinal complaints Musculoskeletal: Musculoskeletal: Reports as per HPI Integumentary/Breasts: Skin/Breast: Reports system reviewed and no additional complaints, except as docu [facility] Past Medical History Medical History HSV-2 infection HSV-1 infection Anxiety Encounter for screening examination for sexually transmitted disease Screening mammogram, encounter for Hematemesis Encounter for screening colonoscopy Cough with hemoptysis Vomiting Hyperlipidemia Surgical History Surgical History History of orthopedic surgery (06/16/25) plate and screws inserted for shattered wrist History of hysteroscopy (07/16/20) Hscope D&C ; PMB ; Benign History of hysteroscopy suction D&C Missed AB H/O colonoscopy (10/19/23) Family History Family History Father Hypertension Thyroid disorder Mother Diabetes mellitus Sibling Asthma Grandparent Alcohol abuse Hypertension Thyroid disorder Other Breast cancer maternal aunt Social History Social History Smoking status: Never smoker Second hand tobacco smoke exposure: No Alcohol intake: former Drinks per week: 2 Substance use: never Substance use type: does not use Lack of Transportation: No Lack of Food: Never True Current Housing: I Have Housing Concerned About Future Housing: No Difficulty Paying Gas/Electric Bills: No Difficulty Paying for Meds: No Currently Unemployed: No Education: Associate Degree Difficulty w/ Childcare or Family Care: No Living arrangements: alone Additional living arrangements comments: Occupation/Education: occupation 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 HEAD: Normocephalic, atraumatic. EYES: PERRLA and EOMI. ENT: Nares clear, no rhinorrhea or epistaxis. Mucous membranes moist. NECK: Supple. CHEST: Clear to auscultation. No respiratory distress. HEART: Regular rate and rhythm. No murmur heard. Normal peripheral pulses. EXTREMITIES: Normal range of motion. No edema. Mild STS of the right forearm SKIN: Warm, dry, no rash. NEURO: No focal deficits. Alert and oriented x3. PSYCH: Normal mood and affect. Course Course Emergency Course: notified patient about her x-ray findings. will place a Volar splint , i discussed with Dr. Harris ,will follow up in the office . Vital Signs Vital signs: Vital Signs Temperature 36.9 C 08/31/25 14:09 Pulse Rate 84 08/31/25 14:09 Respiratory Rate 20 08/31/25 14:09 Blood Pressure 139/71 08/31/25 14:09 Pulse Oximetry 100 08/31/25 14:09 Oxygen Delivery Room Air 08/31/25 14:09 Temperature 36.9 C 08/31/25 14:09 Pulse Rate 77 08/31/25 15:09 Respiratory Rate 12 08/31/25 15:09 Blood Pressure 153/100 H 08/31/25 15:09 Pulse Oximetry 100 08/31/25 15:09 Oxygen Delivery Room Air 08/31/25 14:09 MDM - Fall Differential Diagnosis Differential diagnosis: Likely fracture of wrist Imaging Data Radiologist's impression: ITS Impressions Wrist X-Ray 08/31/25 15:13 Impression: Fractures detailed above Forearm X-Ray 08/31/25 15:14 Impression: Fractures of the distal radius and ulna are redemonstrated Discharge Plan Discharge Clinical Impression: Right wrist fracture Qualifiers: Encounter type: initial encounter Fracture type: closed Qualified Code(s): S62.101A - Fracture of unspecified carpal bone, right wrist, initial encounter for closed fracture Patient Disposition: Home Condition: Stable Instructions: Antibiotic Form, Wrist Fracture in Adults (ED) Additional Instructions: Keep your arm elevated , take pain meds as prescribed . follow with Orthopedic doctor ,number given below Patient Language: Algerian Prescriptions: No Action rosuvastatin [Crestor] 5 mg tablet 5 mg PO DAILY coenzyme [id number] E 100-100 mg-unit capsule 1 cap PO DAILY Centrum 18-400 mg-mcg tablet 1 tablet PO DAILY fluticasone propionate 50 mcg/actuation spray,suspension 1 - 2 spray intranasal TID azelastine 137 mcg (0.1 %) aerosol,spray 1 - 2 spray intranasal Q12H Qty: 90 3RF Rx Instructions: administer into each nostril. Aim back/up/out. Use with flonase valacyclovir [Valtrex] 500 mg tablet 500 mg PO DAILY Qty: 90 3RF hydrocortisone 2.5 % cream 1 applic topical BID Qty: 20 1RF Follow-up/Referrals: Anuel Oliveira MD [Primary Care Provider, Internal Medicine] Rolan Harris MD [Physician, Orthopedics] Time of Disposition: 16:48
--- NOTE | 2025-08-31 15:52 | PC.NURSE ---
this RN spoke to patient about medication upon discharge, and pain management
[2025-08-31] MEDS: oxyCODONE/ACETAMINOPHEN (*CRX) 5-325 MG TABLET 1 TABLET PO (18:54)
[2025-08-31 19:05] VITALS: BP 121/71; PULSE 77; RESP 18; O2SAT 100
== END 2025-08-31 19:06 | disposition home or self-care (01) ==
PROVIDERS: Emergency Provider Family Medicine; PCP Internal Medicine
DX: S52.571A Other intraarticular fracture of lower end of right radius, initial encounter for closed fracture (principal); S52.601A Unspecified fracture of lower end of right ulna, initial encounter for closed fracture; E78.5 Hyperlipidemia, unspecified; W00.0XXA Fall on same level due to ice and snow, initial encounter
CPT/HCPCS: 29125; 36415; 73090; 73110; 96374; 96375; 96376; 99284; A9270; J2270; J2405